=== PATIENT | female | born 1950 | race African-American/Black ===

== ENCOUNTER 2017-04-01 20:22 | Emergency (ER) | payer OTHER ==
[2017-04-01 20:26] VITALS: BP 152/89; PULSE 80; TEMP 98.3; BMI 29.0
[2017-04-01] MEDS ORDERED: CYCLOBENZAPRINE HCL 10 MG TABLET (FP) PO ONE (21:07)
[2017-04-01] MEDS ORDERED: KETOROLAC TROMETHAMINE 30 MG/1 ML VIAL IM ONE (21:07)
[2017-04-01] MEDS ORDERED: KETOROLAC TROMETHAMINE 30 MG/1 ML VIAL ONE (21:12)
[2017-04-01] MEDS ORDERED: CYCLOBENZAPRINE HCL 10 MG TABLET (FP) ONE (21:12)
--- NOTE | 2017-04-01 21:12 | PDOC ---
History of Present Illness - General Chief Complaint: Pain, Acute Stated Complaint: NECK PAIN Time Seen by Provider: 04/01/17 20:38 History Source: Patient - History of Present Illness Timing/Duration: other (yesterday) Associated Symptoms: denies: fever/chills, headaches, nausea/vomiting Past History - Past Medical History Allergies/Adverse Reactions: Allergies Allergy/AdvReac Type Severity Reaction Status Date / Time No Known Allergies Allergy Verified 04/01/17 20:26 Home Medications: Ambulatory Orders Cyclobenzaprine HCl 5 mg PO TID #9 tablet 04/01/17 Ibuprofen [Motrin -] 600 mg PO QID #28 tablet 04/01/17 Other medical history: denies - Suicide/Smoking/Psychosocial Hx Smoking History: Never smoked Have you smoked in the past 12 months: No Hx Alcohol Use: No Drug/Substance Use Hx: No Substance Use Type: None Review of Systems - Review of Systems Constitutional: No: Chills, Fever HEENTM: No: Blurred Vision ABD/GI: No: Nausea, Vomiting Musculoskeletal: No: Neck Pain Neurological: No: Headache, Numbness, Tingling, Weakness, Dizziness *Physical Exam - Vital Signs Last Vital Signs Temp Pulse Resp BP Pulse Ox 98.3 F 80 18 152/89 99 04/01/17 20:24 04/01/17 20:24 04/01/17 20:24 04/01/17 20:24 04/01/17 20:24 - Physical Exam General Appearance: Yes: Appropriately Dressed. No: Apparent Distress HEENT: positive: Normal Voice Neck: positive: Tender (over R trapezium, no midline tenderness, FROMI), Supple Respiratory/Chest: negative: Respiratory Distress Integumentary: positive: Dry, Warm Neurologic: positive: Fully Oriented, Alert, Normal Mood/Affect Medical Decision Making - Medical Decision Making 04/01/17 21:08 66 yo F, denies any pmhx, p/w R neck since yesterday. Unable to describe pain, 6 /10 and worse w/ ROM. No UE weakness, sensory changes, CURIEL, dizziness, visual changes, n/v or focal weakness. Denies any trauma but states she "works out" frequently in her home See exam M/l neck strain No red flags at this time -dc w/ pain control 04/01/17 21:14 04/01/17 21:18 04/01/17 21:22 After given meds, pt requested discharge. Will f/u with her PMD as needed *DC/Admit/Observation/Transfer Diagnosis at time of Disposition: Neck strain Qualifiers: Encounter type: initial encounter Qualified Code(s): S16.1XXA - Strain of muscle, fascia and tendon at neck level, initial encounter - Discharge Dispostion Disposition: HOME - Prescriptions Prescriptions: Cyclobenzaprine HCl 5 mg PO TID #9 tablet Ibuprofen [Motrin -] 600 mg PO QID #28 tablet - Referrals Referrals: Chelsea Capone [Primary Care Provider] - - Patient Instructions Printed Discharge Instructions: DI for Neck Pain Additional Instructions: Take medications as needed If pain persists, follow up with your PMD
== END 2017-04-01 21:21 | disposition home or self-care (01) ==
LOC: JERFT 20:22
PROC: 3E0233Z Introduction of Anti-inflammatory into Muscle, Percutaneous Approach (ICD-10-PCS; principal; 2017-04-01)
DX: S16.1XXA Strain of muscle, fascia and tendon at neck level, initial encounter (principal); X58.XXXA Exposure to other specified factors, initial encounter; Y93.89 Activity, other specified; Y92.89 Other specified places as the place of occurrence of the external cause
CPT/HCPCS: 99281-25

== ENCOUNTER 2018-03-29 22:19 | Emergency (ER) | payer OTHER ==
[2018-03-29 22:26] VITALS: BP 139/88; PULSE 80; TEMP 97.9; BMI 29.0
--- NOTE | 2018-03-29 22:52 | PDOC ---
History of Present Illness - General History Source: Patient Exam Limitations: No Limitations - History of Present Illness Initial Comments: 03/29/18 22:57 Best Contact:[phone] [facility] Pmhx: Denies Pshx: Denies Allergies: NKDA FH:0 Social Hx: Cigarettes/ 0 Alcohol/ 0 Drugs/0 LMP:N/A 67-year-old female who is right hand dominant presents to the emergency department complaining of left elbow pain 4 days after constantly repetitive flexion and extension while at work and at home. Pain is described as 5/10 dull nonradiating intermittent discomfort which increases on movement and alleviated at rest. Patient denies any injuries/fall, extremity numbness or tingling sensation. <Casa Johnson - Last Filed: 03/29/18 22:57> <Herve Marte - Last Filed: 03/30/18 22:17> - General Chief Complaint: Pain Stated Complaint: LT ELBOW PAIN Time Seen by Provider: 03/29/18 22:51 Past History - Past Medical History COPD: No - Suicide/Smoking/Psychosocial Hx Smoking History: Never smoked Have you smoked in the past 12 months: No Hx Alcohol Use: No Drug/Substance Use Hx: No Substance Use Type: None <Casa Johnson - Last Filed: 03/29/18 22:57> <Herve Marte - Last Filed: 03/30/18 22:17> - Past Medical History Allergies/Adverse Reactions: Allergies Allergy/AdvReac Type Severity Reaction Status Date / Time No Known Allergies Allergy Verified 03/29/18 22:23 Home Medications: Ambulatory Orders Cyclobenzaprine HCl [Flexeril -] 10 mg PO TID #9 tablet 04/02/17 Ibuprofen [Motrin -] 400 mg PO Q6H #30 tablet 04/02/17 Acetaminophen [Tylenol] 650 mg PO PRN 03/29/18 Review of Systems - Review of Systems Able to Perform ROS?: Yes Comments:: 03/29/18 22:59 CONSTITUTIONAL: Absent: fever, chills, diaphoresis, generalized weakness, malaise, loss of appetite HEENT: Absent: rhinorrhea, nasal congestion, throat pain, throat swelling, difficulty swallowing, mouth swelling, ear pain, eye pain, visual Changes CARDIOVASCULAR: Absent: chest pain, loss of consciousness, palpitations, irregular heart rate, peripheral edema RESPIRATORY: Absent: cough, shortness of breath, dyspnea with exertion, orthopnea, wheezing, stridor, hemoptysis GASTROINTESTINAL: Absent: abdominal pain, abdominal distension, nausea, vomiting, diarrhea, constipation, melena, hematochezia MUSCULOSKELETAL: +left elbow pain Absent: myalgia, arthralgia, joint swelling SKIN: Absent: rash, itching, pallor Is the patient limited [place] proficient: No <Casa Johnson - Last Filed: 03/29/18 22:57> *Physical Exam - Vital Signs Last Vital Signs Temp Pulse Resp BP Pulse Ox 97.9 F 80 18 139/88 98 03/29/18 22:23 03/29/18 22:23 03/29/18 22:23 03/29/18 22:23 03/29/18 22:23 - Physical Exam Comments: 03/29/18 23:00 GENERAL: Well developed, well nourished. Awake and alert. No acute distress. HEENT: Normocephalic, atraumatic. PERRLA, EOMI. No conjunctival pallor. Sclera are non- icteric. Moist mucous membranes. Oropharynx is clear. NECK: Supple. Full ROM. No JVD. Carotid pulses 2+ and symmetric, without bruits. No thyromegaly. No lymphadenopathy. CARDIOVASCULAR: Regular rate and rhythm. No murmurs, rubs, or gallops. Distal pulses are 2+ and symmetric. PULMONARY: No evidence of respiratory distress. Lungs clear to auscultation bilaterally. No wheezing, rales or rhonchi. MUSCULOSKELETAL Normal range of motion at all joints. No bony deformities or tenderness. No CVA tenderness. EXTREMITIES: +left elbow, neg obv deformities, Pain on palp, neg erythematous/swelling No cyanosis. No clubbing. No edema. No calf tenderness. SKIN: Warm and dry. Normal capillary refill. No rashes. No jaundice. <Casa Johnson - Last Filed: 03/29/18 22:57> - Vital Signs Last Vital Signs Temp Pulse Resp BP Pulse Ox 97.9 F 80 18 139/88 98 03/29/18 22:23 03/29/18 22:23 03/29/18 22:23 03/29/18 22:23 03/29/18 22:23 <Herve Marte - Last Filed: 03/30/18 22:17> ED Treatment Course - RADIOLOGY Radiograph Interpretation: 03/29/18 23:01 Xray left elbow; 2v neg <Casa Johnson - Last Filed: 03/29/18 22:57> Medical Decision Making - Medical Decision Making 03/30/18 22:17 The patient was seen and evaluated in conjunction with ALEXANDRA Johnson under my direct supervision, ancillary studies were reviewed. I agree with the plan as outlined by ALEXANDRA Johnson. <Herve Marte - Last Filed: 03/30/18 22:17> *DC/Admit/Observation/Transfer - Discharge Dispostion Decision to Admit order: No <Casa Johnson - Last Filed: 03/29/18 22:57> <Herve Marte - Last Filed: 03/30/18 22:17> Diagnosis at time of Disposition: Elbow tendonitis - Discharge Dispostion Disposition: HOME Condition at time of disposition: Stable - Referrals Referrals: Albert Mullins MD [Staff Physician] - - Patient Instructions Printed Discharge Instructions: DI for Lateral Epicondylitis (Tennis Elbow) Additional Instructions: Ice; 20 mins on alternating with 20 mins off for 48 hours while awake. Rest Elevate Follow up with your orthopedic surgeon or the one listed on the discharge form. Motrin as needed for pain Return to the ER for severe/persistent/worsening symptoms, extremity numbness/ tingling sensation.
== END 2018-03-29 23:40 | disposition home or self-care (01) ==
LOC: JER 22:19
DX: M77.12 Lateral epicondylitis, left elbow (principal)
CPT/HCPCS: 73070-TC-LT-FY; 99282-25

== ENCOUNTER 2020-07-23 08:57 | Inpatient (IN) | payer BC, OTHER ==
[2020-07-23 10:43] LABS: BASO % 1.4 % (0-2.0); EOS % 2.1 % (0-4.5); HEMATOCRIT 42.1 % (32.4-45.2); HEMOGLOBIN 13.6 GM/dL (10.7-15.3); LYMPH % 29.8 % (8-40); MCH 28.4 pg (25.7-33.7); MCHC 32.4 g/dl (32.0-36.0); MEAN CELL VOLUME 87.7 fl (80-96); MEAN PLT VOLUME 8.6 fl (7.5-11.1); MONO % 13.1 % (3.8-10.2); NEUT % 53.6 % (42.8-82.8); PLATELET COUNT 151 K/MM3 (134-434); RDW 14.4 % (11.6-15.6); WHITE BLOOD COUNT 4.7 K/mm3 (4.0-10.0)
[2020-07-23] MEDS: SODIUM CHLORIDE 500 ML IV SCH (11:02)
[2020-07-23 11:12] LABS: INR 1.05 (0.83-1.09); PROTHROMBIN TIME (PATIENT) 12.7 SEC (9.7-13.0)
[2020-07-23 11:14] LABS: POTASSIUM 4.5 mmol/L (3.5-5.1)
[2020-07-23 11:15] LABS: ACTIVATED PTT 31.4 SECONDS (25.2-36.5)
[2020-07-23 11:16] LABS: CALCIUM 9.3 mg/dL (8.5-10.1)
[2020-07-23 11:17] LABS: ALBUMIN 3.7 g/dl (3.4-5.0); BLOOD UREA NITROGEN 13.8 mg/dL (7-18); MAGNESIUM 2.3 mg/dL (1.8-2.4)
[2020-07-23 11:20] LABS: CREATININE 0.8 mg/dL (0.55-1.3)
[2020-07-23 11:21] LABS: BILIRUBIN,TOTAL 0.4 mg/dL (0.2-1); TOT PROT 7.9 g/dl (6.4-8.2)
[2020-07-23 11:24] LABS: N-TERMINAL BNP 38.8 pg/ml (5-125)
[2020-07-23] MEDS ORDERED: ASPIRIN 81 MG CHEWABLE TABLETS PO ONE (11:29)
[2020-07-23] MEDS ORDERED: ASPIRIN 81 MG CHEWABLE TABLETS ONE (12:22)
[2020-07-23] MEDS ORDERED: ENOXAPARIN NA (PORCINE) 40 MG/0.4 ML DISP.SYRIN SQ ONE (13:32)
[2020-07-23] MEDS ORDERED: ENOXAPARIN NA (PORCINE) 100 MG/1 ML DISP.SYRIN SQ ONE (13:40)
[2020-07-23] MEDS ORDERED: HEPARIN NA (PORCINE) 5,000 UNITS/ML 1ML VIAL IVPUSH PRN ×2 (16:08)
[2020-07-23] MEDS ORDERED: HEPARIN INFUSION - 25,000 UNITS/500 ML INFUS.BAG IVPB ONE (16:23)
[2020-07-23] MEDS: HEPARIN INFUSION - 25,000 UNITS/500 ML INFUS.BAG IVPB SCH (16:37)
[2020-07-24 07:21] LABS: BASO % 0.5 % (0-2.0); EOS % 3.6 % (0-4.5); HEMATOCRIT 40.4 % (32.4-45.2); HEMOGLOBIN 13.1 GM/dL (10.7-15.3); LYMPH % 36.9 % (8-40); MCH 28.5 pg (25.7-33.7); MCHC 32.4 g/dl (32.0-36.0); MEAN CELL VOLUME 87.8 fl (80-96); MEAN PLT VOLUME 8.6 fl (7.5-11.1); MONO % 11.6 % (3.8-10.2); NEUT % 47.4 % (42.8-82.8); PLATELET COUNT 157 K/MM3 (134-434); RDW 14.2 % (11.6-15.6); WHITE BLOOD COUNT 5.5 K/mm3 (4.0-10.0)
[2020-07-24 07:41] LABS: CALCIUM 8.6 mg/dL (8.5-10.1)
[2020-07-24 07:42] LABS: ALBUMIN 3.2 g/dl (3.4-5.0); BLOOD UREA NITROGEN 12.8 mg/dL (7-18); MAGNESIUM 2.4 mg/dL (1.8-2.4)
[2020-07-24 07:45] LABS: CREATININE 0.8 mg/dL (0.55-1.3)
[2020-07-24 07:47] LABS: BILIRUBIN,TOTAL 0.4 mg/dL (0.2-1); TOT PROT 7.1 g/dl (6.4-8.2)
[2020-07-24] MEDS: ACETAMINOPHEN 325 MG TABLET (FP) PO PRN (12:02)
[2020-07-24] MEDS: SODIUM CHLORIDE 500 ML IV SCH (12:08)
[2020-07-24] MEDS: HEPARIN INFUSION - 25,000 UNITS/500 ML INFUS.BAG IVPB SCH (19:00)
[2020-07-25] MEDS: ACETAMINOPHEN 325 MG TABLET (FP) PO PRN (04:36)
[2020-07-25 06:50] LABS: HEMATOCRIT 37.1 % (32.4-45.2); HEMOGLOBIN 12.2 GM/dL (10.7-15.3); MCH 28.6 pg (25.7-33.7); MCHC 32.9 g/dl (32.0-36.0); MEAN PLT VOLUME 8.5 fl (7.5-11.1); PLATELET COUNT 160 K/MM3 (134-434); RBC 4.27 M/mm3 (3.60-5.2); RDW 14.2 % (11.6-15.6); WHITE BLOOD COUNT 5.4 K/mm3 (4.0-10.0)
[2020-07-25 07:48] LABS: BLOOD UREA NITROGEN 13.1 mg/dL (7-18); CALCIUM 8.3 mg/dL (8.5-10.1); CREATININE 0.7 mg/dL (0.55-1.3); POTASSIUM 3.9 mmol/L (3.5-5.1)
[2020-07-25] MEDS ORDERED: ALTEPLASE 50MG 25 MG in SODIUM CHLORIDE 225 ML IVPB ONE ×2 (11:45→12:00)
[2020-07-25] MEDS: SODIUM CHLORIDE 500 ML IV SCH (14:31)
[2020-07-25] MEDS: HEPARIN INFUSION - 25,000 UNITS/500 ML INFUS.BAG IVPB SCH (15:00)
[2020-07-25] MEDS ORDERED: APIXABAN 5 MG TABLET PO SCH ×2 (16:00→22:00)
[2020-07-25] MEDS ORDERED: HEPARIN NA (PORCINE) 5,000 UNITS/ML 1ML VIAL IVPUSH PRN ×4 (16:21→18:05)
[2020-07-25] MEDS ORDERED: HEPARIN - 25,000 UNIT in SODIUM CHLORIDE 495 ML IV SCH (16:30)
[2020-07-25] MEDS ORDERED: HEPARIN NA (PORCINE) 5,000 UNITS/ML 1ML VIAL IVPUSH ONE (18:05)
[2020-07-25] MEDS: MULTIVITAMINS (DAILY MVI) TABLET (FP) PO SCH (18:35)
[2020-07-25] MEDS ORDERED: BENZOCAINE/MENTH/CETYLPYRD CL 1 EACH LOZENGE MM PRN (22:46)
[2020-07-26 07:26] LABS: BASO % 0.6 % (0-2.0); EOS % 2.8 % (0-4.5); HEMATOCRIT 37.7 % (32.4-45.2); HEMOGLOBIN 12.4 GM/dL (10.7-15.3); LYMPH % 31.3 % (8-40); MCH 28.4 pg (25.7-33.7); MCHC 32.8 g/dl (32.0-36.0); MEAN CELL VOLUME 86.5 fl (80-96); MEAN PLT VOLUME 8.5 fl (7.5-11.1); MONO % 10.3 % (3.8-10.2); PLATELET COUNT 182 K/MM3 (134-434); RBC 4.36 M/mm3 (3.60-5.2); RDW 13.9 % (11.6-15.6); WHITE BLOOD COUNT 5.7 K/mm3 (4.0-10.0)
[2020-07-26 08:50] LABS: ALBUMIN 3.2 g/dl (3.4-5.0); BILIRUBIN,TOTAL 0.5 mg/dL (0.2-1); BLOOD UREA NITROGEN 12.8 mg/dL (7-18); CALCIUM 8.6 mg/dL (8.5-10.1); CREATININE 0.7 mg/dL (0.55-1.3); MAGNESIUM 2.2 mg/dL (1.8-2.4); PHOSPHOROUS 2.6 mg/dL (2.5-4.9); POTASSIUM 3.9 mmol/L (3.5-5.1); TOT PROT 7.1 g/dl (6.4-8.2)
[2020-07-26] MEDS: MULTIVITAMINS (DAILY MVI) TABLET (FP) PO SCH (09:57)
[2020-07-26] MEDS ORDERED: ALTEPLASE 50MG 25 MG in SODIUM CHLORIDE 225 ML IVPB ONE (11:45)
[2020-07-26] MEDS: HEPARIN INFUSION - 25,000 UNITS/500 ML INFUS.BAG IVPB SCH (19:15)
[2020-07-26] MEDS: SODIUM CHLORIDE 500 ML IV SCH (19:15)
[2020-07-27] MEDS: ACETAMINOPHEN 325 MG TABLET (FP) PO PRN (02:26)
[2020-07-27 07:11] LABS: BASO % 0.7 % (0-2.0); EOS % 3.1 % (0-4.5); HEMOGLOBIN 12.1 GM/dL (10.7-15.3); MCH 28.5 pg (25.7-33.7); MCHC 32.7 g/dl (32.0-36.0); MEAN CELL VOLUME 87.3 fl (80-96); MEAN PLT VOLUME 8.5 fl (7.5-11.1); MONO % 10.8 % (3.8-10.2); NEUT % 59.4 % (42.8-82.8); PLATELET COUNT 152 K/MM3 (134-434); RBC 4.24 M/mm3 (3.60-5.2); RDW 14.2 % (11.6-15.6); WHITE BLOOD COUNT 5.5 K/mm3 (4.0-10.0)
[2020-07-27 07:30] LABS: POTASSIUM 4.2 mmol/L (3.5-5.1)
[2020-07-27 07:48] LABS: ALBUMIN 2.9 g/dl (3.4-5.0); BLOOD UREA NITROGEN 16.4 mg/dL (7-18); CALCIUM 8.7 mg/dL (8.5-10.1)
[2020-07-27 07:49] LABS: MAGNESIUM 2.2 mg/dL (1.8-2.4)
[2020-07-27 07:51] LABS: BILIRUBIN,TOTAL 0.7 mg/dL (0.2-1); CREATININE 0.7 mg/dL (0.55-1.3); TOT PROT 6.7 g/dl (6.4-8.2)
[2020-07-27] MEDS: HEPARIN INFUSION - 25,000 UNITS/500 ML INFUS.BAG IVPB SCH (07:55)
[2020-07-27] MEDS: MULTIVITAMINS (DAILY MVI) TABLET (FP) PO SCH (09:08)
[2020-07-27] MEDS: SODIUM CHLORIDE 500 ML IV SCH (10:33)
[2020-07-27] MEDS ORDERED: PT OWN MED DRAWER 7, Y5N ONE ×2 (12:39→12:45)
[2020-07-27] MEDS: APIXABAN 5 MG TABLET PO SCH (22:18)
[2020-07-28] MEDS: ACETAMINOPHEN 325 MG TABLET (FP) PO PRN (05:06)
[2020-07-28 06:50] LABS: BASO % 0.6 % (0-2.0); EOS % 4.2 % (0-4.5); HEMATOCRIT 35.8 % (32.4-45.2); HEMOGLOBIN 11.6 GM/dL (10.7-15.3); MCH 28.3 pg (25.7-33.7); MCHC 32.5 g/dl (32.0-36.0); MEAN CELL VOLUME 87.1 fl (80-96); MEAN PLT VOLUME 8.5 fl (7.5-11.1); MONO % 12.8 % (3.8-10.2); NEUT % 53.4 % (42.8-82.8); PLATELET COUNT 143 K/MM3 (134-434); RBC 4.11 M/mm3 (3.60-5.2); RDW 14.1 % (11.6-15.6); WHITE BLOOD COUNT 5.7 K/mm3 (4.0-10.0)
[2020-07-28 07:04] LABS: POTASSIUM 4.1 mmol/L (3.5-5.1)
[2020-07-28 07:08] LABS: ALBUMIN 2.8 g/dl (3.4-5.0); CALCIUM 8.3 mg/dL (8.5-10.1)
[2020-07-28 07:11] LABS: CREATININE 0.7 mg/dL (0.55-1.3)
[2020-07-28 07:12] LABS: PHOSPHOROUS 2.9 mg/dL (2.5-4.9)
[2020-07-28 07:13] LABS: BILIRUBIN,TOTAL 0.3 mg/dL (0.2-1); TOT PROT 6.4 g/dl (6.4-8.2)
[2020-07-28] MEDS: APIXABAN 5 MG TABLET PO SCH ×2 (09:02→21:35)
[2020-07-28] MEDS: MULTIVITAMINS (DAILY MVI) TABLET (FP) PO SCH (09:08)
[2020-07-28] MEDS ORDERED: ALBUTEROL SO4 HFA INHALER IH PRN (19:11)
[2020-07-29] MEDS ORDERED: BENZOCAINE/MENTH/CETYLPYRD CL 1 EACH LOZENGE MM PRN (06:55)
[2020-07-29 08:22] LABS: HEMATOCRIT 33.6 % (32.4-45.2); HEMOGLOBIN 11.1 GM/dL (10.7-15.3); MCH 28.6 pg (25.7-33.7); MEAN CELL VOLUME 86.7 fl (80-96); MEAN PLT VOLUME 8.6 fl (7.5-11.1); PLATELET COUNT 180 K/MM3 (134-434); RBC 3.88 M/mm3 (3.60-5.2); RDW 13.8 % (11.6-15.6); WHITE BLOOD COUNT 4.4 K/mm3 (4.0-10.0)
[2020-07-29 08:38] LABS: CALCIUM 8.5 mg/dL (8.5-10.1)
[2020-07-29 08:39] LABS: BLOOD UREA NITROGEN 18.5 mg/dL (7-18); MAGNESIUM 2.3 mg/dL (1.8-2.4)
[2020-07-29 08:43] LABS: CREATININE 0.8 mg/dL (0.55-1.3); PHOSPHOROUS 3.2 mg/dL (2.5-4.9)
[2020-07-29] MEDS ORDERED: ACETAMINOPHEN 325 MG TABLET (FP) ONE (09:26)
[2020-07-29] MEDS: APIXABAN 5 MG TABLET PO SCH ×2 (09:36→21:20)
[2020-07-29] MEDS: ACETAMINOPHEN 325 MG TABLET (FP) PO PRN (09:36)
[2020-07-29] MEDS: MULTIVITAMINS (DAILY MVI) TABLET (FP) PO SCH (09:36)
[2020-07-29 14:48] VITALS: BMI 36.1
[2020-07-30 08:50] LABS: HEMATOCRIT 33.4 % (32.4-45.2); HEMOGLOBIN 10.8 GM/dL (10.7-15.3); MCH 28.6 pg (25.7-33.7); MCHC 32.4 g/dl (32.0-36.0); MEAN CELL VOLUME 88.3 fl (80-96); MEAN PLT VOLUME 8.3 fl (7.5-11.1); PLATELET COUNT 191 K/MM3 (134-434); RBC 3.78 M/mm3 (3.60-5.2); RDW 14.3 % (11.6-15.6); WHITE BLOOD COUNT 4.4 K/mm3 (4.0-10.0)
[2020-07-30 09:01] LABS: POTASSIUM 4.6 mmol/L (3.5-5.1)
[2020-07-30 09:12] LABS: CALCIUM 8.6 mg/dL (8.5-10.1)
[2020-07-30 09:14] LABS: BLOOD UREA NITROGEN 22.3 mg/dL (7-18); MAGNESIUM 2.2 mg/dL (1.8-2.4)
[2020-07-30 09:16] LABS: CREATININE 0.7 mg/dL (0.55-1.3)
[2020-07-30] MEDS: MULTIVITAMINS (DAILY MVI) TABLET (FP) PO SCH (09:29)
[2020-07-30] MEDS: APIXABAN 5 MG TABLET PO SCH ×2 (09:29→21:14)
[2020-07-30 14:37] LABS: INR 1.56 (0.83-1.09); PROTHROMBIN TIME (PATIENT) 18.9 SEC (9.7-13.0)
[2020-07-30 14:39] LABS: ACTIVATED PTT 33.4 SECONDS (25.2-36.5)
[2020-07-31] MEDS: ACETAMINOPHEN 325 MG TABLET (FP) PO PRN (05:53)
[2020-07-31] MEDS: MULTIVITAMINS (DAILY MVI) TABLET (FP) PO SCH (11:05)
[2020-07-31] MEDS: APIXABAN 5 MG TABLET PO SCH (11:05)
[2020-07-31 12:40] VITALS: BP 113/55; PULSE 76; TEMP 97.7
[2020-08-02] MEDS ORDERED: APIXABAN 5 MG TABLET PO SCH (10:00)
== END 2020-07-31 15:07 | disposition home or self-care (01) | DRG 164 ==
LOC: JER 08:57 → JERBED 15:07 → JICU 22:09 → J4W 07-28 22:34
PROVIDERS: ADMIT Internal Medicine; ATTEND Internal Medicine
PROC: 02F Heart and Great Vessels, Fragmentation (ICD-10-PCS; principal; 2020-07-26)
PROC: 02CP3ZZ Extirpation of Matter from Pulmonary Trunk, Percutaneous Approach (ICD-10-PCS; 2020-07-26)
PROC: B31TZZZ Fluoroscopy of Left Pulmonary Artery (ICD-10-PCS; 2020-07-26)
PROC: B31SZZZ Fluoroscopy of Right Pulmonary Artery (ICD-10-PCS; 2020-07-26)
PROC: 3E06317 Introduction of Other Thrombolytic into Central Artery, Percutaneous Approach (ICD-10-PCS; 2020-07-26)
DX: I26.09 Other pulmonary embolism with acute cor pulmonale (principal); I24.8 Other forms of acute ischemic heart disease; J45.909 Unspecified asthma, uncomplicated; R06.02 Shortness of breath; R77.8 Other specified abnormalities of plasma proteins; E66.9 Obesity, unspecified; Z68.34 Body mass index [BMI] 34.0-34.9, adult; I45.10 Unspecified right bundle-branch block
CPT/HCPCS: 36415; 37187; 37212; 71046-TC-FY; 71275-TC; 75743-TC-FY; 75746-TC-FY; 80048; 80053; 82550; 82553; 82728; 83615; 83735; 83880; 84100; 84484; 85025; 85027; 85379; 85610; 85730; 86140; 86769; 93005; 93010; 93306-TC; 93308; 93970-TC; 97116-GP; 97161-GP; 99285-25; C9803; J1644; J2997; Q9967; U0003

== ENCOUNTER 2020-08-09 12:47 | Emergency (ER) | payer BC, OTHER ==
[2020-08-09 13:06] VITALS: BP 133/77; BMI 36.3
[2020-08-09] MEDS ORDERED: ACETAMINOPHEN 325 MG TABLET (FP) PO ONE (13:46)
[2020-08-09] MEDS ORDERED: LIDOCAINE 5% TOPICAL PATCH TP ONE (13:46)
[2020-08-09] MEDS ORDERED: LIDOCAINE 5% TOPICAL PATCH ONE (14:01)
[2020-08-09] MEDS ORDERED: ACETAMINOPHEN 325 MG TABLET (FP) ONE (14:01)
[2020-08-09] MEDS ORDERED: SODIUM CHLORIDE 0.9% 500 ML INFUS.BAG IV ONE (17:45)
[2020-08-09 18:45] LABS: BASO % 1.4 % (0-2.0); EOS % 2.6 % (0-4.5); HEMATOCRIT 35.8 % (32.4-45.2); HEMOGLOBIN 11.5 GM/dL (10.7-15.3); LYMPH % 39.2 % (8-40); MCH 28.4 pg (25.7-33.7); MEAN CELL VOLUME 88.5 fl (80-96); MEAN PLT VOLUME 8.3 fl (7.5-11.1); MONO % 15.4 % (3.8-10.2); NEUT % 41.4 % (42.8-82.8); PLATELET COUNT 291 K/MM3 (134-434); RBC 4.04 M/mm3 (3.60-5.2); RDW 14.6 % (11.6-15.6); WHITE BLOOD COUNT 4.5 K/mm3 (4.0-10.0)
[2020-08-09 18:54] LABS: INR 1.03 (0.83-1.09); PROTHROMBIN TIME (PATIENT) 12.6 SEC (9.7-13.0)
[2020-08-09 19:10] LABS: CHLORIDE 106 mmol/L (98-107); POTASSIUM 4.3 mmol/L (3.5-5.1); SODIUM 140 mmol/L (136-145)
[2020-08-09 19:13] LABS: ALBUMIN 3.4 g/dl (3.4-5.0); ANION GAP 5 MMOL/L (8-16); BLOOD UREA NITROGEN 17.4 mg/dL (7-18); CALCIUM 9.1 mg/dL (8.5-10.1); CO2 29 mmol/L (21-32); GLUCOSE,RANDOM 84 mg/dL (74-106)
[2020-08-09 19:16] LABS: CREATININE 0.7 mg/dL (0.55-1.3); SGOT/AST 24 U/L (15-37); SGPT/ALT 40 U/L (13-61)
[2020-08-09 19:18] LABS: BILIRUBIN,TOTAL 0.3 mg/dL (0.2-1); TOT PROT 7.3 g/dl (6.4-8.2)
[2020-08-09 19:19] LABS: ALK PHOS 97 U/L (45-117)
[2020-08-09 19:52] VITALS: PULSE 67; TEMP 98.2
== END 2020-08-09 20:07 | disposition home or self-care (01) ==
LOC: JER 12:47
DX: M25.512 Pain in left shoulder (principal); R11.0 Nausea
CPT/HCPCS: 36415; 71046-TC-FY; 73030-TC-LT-FY; 80053; 82550; 82553; 84484; 85025; 85610; 93005; 93010; 93971; 99285-25

== ENCOUNTER 2020-08-31 19:02 | Emergency (ER) | payer BC ==
[2020-08-31 19:29] VITALS: TEMP 98.3; BMI 36.4
[2020-08-31 21:15] LABS: BASO % 0.8 % (0-2.0); HEMATOCRIT 36.6 % (32.4-45.2); LYMPH % 39.4 % (8-40); MCH 28.7 pg (25.7-33.7); MCHC 32.6 g/dl (32.0-36.0); MEAN CELL VOLUME 87.9 fl (80-96); MEAN PLT VOLUME 8.9 fl (7.5-11.1); MONO % 13.2 % (3.8-10.2); NEUT % 44.6 % (42.8-82.8); PLATELET COUNT 215 K/MM3 (134-434); RBC 4.17 M/mm3 (3.60-5.2); RDW 14.9 % (11.6-15.6); WHITE BLOOD COUNT 4.3 K/mm3 (4.0-10.0)
[2020-08-31 21:30] LABS: CHLORIDE 111 mmol/L (98-107); POTASSIUM 4.4 mmol/L (3.5-5.1); SODIUM 144 mmol/L (136-145)
[2020-08-31 21:32] LABS: CALCIUM 8.8 mg/dL (8.5-10.1)
[2020-08-31 21:33] LABS: ALBUMIN 3.3 g/dl (3.4-5.0); ANION GAP 6 MMOL/L (8-16); BLOOD UREA NITROGEN 19.3 mg/dL (7-18); CO2 27 mmol/L (21-32); GLUCOSE,RANDOM 78 mg/dL (74-106); LIPASE 217 U/L (73-393)
[2020-08-31 21:36] LABS: CREATININE 0.7 mg/dL (0.55-1.3); SGOT/AST 24 U/L (15-37); SGPT/ALT 23 U/L (13-61)
[2020-08-31 21:38] LABS: BILIRUBIN,TOTAL 0.3 mg/dL (0.2-1); TOT PROT 7.2 g/dl (6.4-8.2)
[2020-08-31 21:39] LABS: ALK PHOS 92 U/L (45-117)
[2020-08-31 23:12] LABS: INR 1.1 (0.83-1.09); PROTHROMBIN TIME (PATIENT) 13.3 SEC (9.7-13.0)
[2020-08-31 23:14] LABS: ACTIVATED PTT 31.7 SECONDS (25.2-36.5)
[2020-09-01 01:41] VITALS: BP 129/93; PULSE 77
[2020-09-01 03:10] LABS: EPI CELLS >36 /uL (0-25.1); HYALINE CASTS 4 /uL (0-3.1); PH,URINE 5.5 (5.0-8.0); URINE APPEARANCE CLOUDY; URINE BACTERIA 183 /uL (0-1359); URINE BILIRUBIN NEGATIVE (NEGATIVE); URINE COLOR YELLOW; URINE GLUCOSE (UA) NEGATIVE (NEGATIVE); URINE KETONE TRACE (NEGATIVE); URINE LEUK ESTERASE 1+ (NEGATIVE); URINE NITRITE NEGATIVE (NEGATIVE); URINE PROTEIN NEGATIVE (NEGATIVE); URINE RBC 12 /uL (0-23.9); URINE UROBILINOGEN 0.2 mg/dL (0.2-1.0); URINE WBC 31 /uL (0-25.8)
== END 2020-09-01 04:06 | disposition home or self-care (01) ==
LOC: JER 19:02
DX: R10.84 Generalized abdominal pain (principal)
CPT/HCPCS: 36415; 71275-TC; 74174-TC; 80053; 81003; 83605; 83690; 84484; 85025; 85610; 85730; 86850; 86900; 86901; 87086; 93005; 93010; 99285-25

== ENCOUNTER 2020-09-13 11:30 | Inpatient (IN) | payer BC ==
[2020-09-13 11:38] VITALS: BMI 36.3
[2020-09-13] MEDS ORDERED: CYCLOBENZAPRINE HCL 10 MG TABLET (FP) PO ONE (12:14)
[2020-09-13] MEDS ORDERED: CYCLOBENZAPRINE HCL 10 MG TABLET (FP) ONE (12:31)
[2020-09-13 12:48] LABS: BASO % 0.7 % (0-2.0); EOS % 2.9 % (0-4.5); HEMATOCRIT 37.2 % (32.4-45.2); HEMOGLOBIN 12.2 GM/dL (10.7-15.3); MCH 28.8 pg (25.7-33.7); MCHC 32.8 g/dl (32.0-36.0); MEAN CELL VOLUME 87.9 fl (80-96); MEAN PLT VOLUME 8.4 fl (7.5-11.1); NEUT % 45.4 % (42.8-82.8); PLATELET COUNT 219 K/MM3 (134-434); RBC 4.23 M/mm3 (3.60-5.2); RDW 14.9 % (11.6-15.6); WHITE BLOOD COUNT 3.7 K/mm3 (4.0-10.0)
[2020-09-13 12:52] LABS: EPI CELLS >36 /uL (0-25.1); HYALINE CASTS 4 /uL (0-3.1); INR 1.08 (0.83-1.09); PH,URINE 8.5 (5.0-8.0); PROTHROMBIN TIME (PATIENT) 13.3 SEC (9.7-13.0); URINE APPEARANCE CLOUDY; URINE BACTERIA 149 /uL (0-1359); URINE BILIRUBIN NEGATIVE (NEGATIVE); URINE COLOR YELLOW; URINE GLUCOSE (UA) NEGATIVE (NEGATIVE); URINE KETONE TRACE (NEGATIVE); URINE LEUK ESTERASE 1+ (NEGATIVE); URINE NITRITE NEGATIVE (NEGATIVE); URINE PROTEIN NEGATIVE (NEGATIVE); URINE RBC 34 /uL (0-23.9); URINE UROBILINOGEN 0.2 mg/dL (0.2-1.0); URINE WBC 19 /uL (0-25.8)
[2020-09-13 12:55] LABS: ACTIVATED PTT 33.7 SECONDS (25.2-36.5)
[2020-09-13 12:56] LABS: CHLORIDE 107 mmol/L (98-107); POTASSIUM 4.3 mmol/L (3.5-5.1); SODIUM 140 mmol/L (136-145)
[2020-09-13 13:02] LABS: ALBUMIN 3.3 g/dl (3.4-5.0); ANION GAP 6 MMOL/L (8-16); CALCIUM 9.7 mg/dL (8.5-10.1); CO2 27 mmol/L (21-32)
[2020-09-13 13:03] LABS: BLOOD UREA NITROGEN 12.2 mg/dL (7-18); GLUCOSE,RANDOM 110 mg/dL (74-106)
[2020-09-13 13:04] LABS: SGPT/ALT 23 U/L (13-61)
[2020-09-13 13:05] LABS: SGOT/AST 20 U/L (15-37)
[2020-09-13 13:06] LABS: BILIRUBIN,TOTAL 0.2 mg/dL (0.2-1); CREATININE 0.9 mg/dL (0.55-1.3); TOT PROT 7.1 g/dl (6.4-8.2)
[2020-09-13 13:07] LABS: ALK PHOS 109 U/L (45-117)
[2020-09-13] MEDS ORDERED: ASPIRIN 81 MG CHEWABLE TABLETS PO ONE (13:56)
[2020-09-13] MEDS ORDERED: ALBUTEROL SO4 HFA INHALER IH PRN (14:18)
[2020-09-13] MEDS ORDERED: CYCLOBENZAPRINE HCL 10 MG TABLET (FP) PO PRN (14:19)
[2020-09-13] MEDS ORDERED: ACETAMINOPHEN 325 MG TABLET (FP) PO PRN (14:19)
[2020-09-13] MEDS ORDERED: ASPIRIN 81 MG CHEWABLE TABLETS ONE (14:49)
[2020-09-13] MEDS ORDERED: APIXABAN 5 MG TABLET ONE (22:22)
[2020-09-13] MEDS: APIXABAN 5 MG TABLET PO SCH (22:25)
[2020-09-14 01:39] VITALS: TEMP 98.3
[2020-09-14 07:00] LABS: BASO % 1.1 % (0-2.0); EOS % 4.5 % (0-4.5); HEMATOCRIT 35.6 % (32.4-45.2); HEMOGLOBIN 11.6 GM/dL (10.7-15.3); LYMPH % 45.9 % (8-40); MCH 28.7 pg (25.7-33.7); MCHC 32.4 g/dl (32.0-36.0); MEAN CELL VOLUME 88.4 fl (80-96); MEAN PLT VOLUME 8.7 fl (7.5-11.1); NEUT % 35.5 % (42.8-82.8); PLATELET COUNT 198 K/MM3 (134-434); RBC 4.03 M/mm3 (3.60-5.2); RDW 14.8 % (11.6-15.6); WHITE BLOOD COUNT 3.3 K/mm3 (4.0-10.0)
[2020-09-14 07:39] LABS: CALCIUM 8.7 mg/dL (8.5-10.1)
[2020-09-14 07:49] LABS: BLOOD UREA NITROGEN 12.9 mg/dL (7-18)
[2020-09-14 07:52] LABS: CREATININE 0.7 mg/dL (0.55-1.3); PHOSPHOROUS 3.7 mg/dL (2.5-4.9)
[2020-09-14 07:53] LABS: BILIRUBIN,TOTAL 0.4 mg/dL (0.2-1); TOT PROT 6.4 g/dl (6.4-8.2)
[2020-09-14 07:54] LABS: CHOLESTEROL 218 mg/dL (50-200); TRIGLYCERIDES 47 mg/dL (0-150)
[2020-09-14 07:55] LABS: LDL CHOLESTEROL (ONLY SJRH) 103 mg/dL (5-100)
[2020-09-14 07:57] LABS: HDL CHOLESTEROL 96 mg/dL (40-60)
[2020-09-14] MEDS ORDERED: REGADENOSON 0.4 MG/5 ML PRE-FILLED SYRINGE IVPUSH ONE ×2 (09:56→10:15)
[2020-09-14] MEDS ORDERED: PANTOPRAZOLE 40 MG TABLET PO SCH (10:00)
[2020-09-14] MEDS ORDERED: PANTOPRAZOLE 40 MG TABLET ONE (14:17)
[2020-09-14] MEDS ORDERED: APIXABAN 2.5 MG TABLET ONE (14:21)
[2020-09-14] MEDS: APIXABAN 5 MG TABLET PO SCH (14:25)
[2020-09-14 15:56] VITALS: BP 143/79; PULSE 89
== END 2020-09-14 15:55 | disposition home or self-care (01) | DRG 313 ==
LOC: JER 11:30 → JERBED 13:31 → OBSVTOIN 14:11
PROVIDERS: ADMIT Internal Medicine; ATTEND Internal Medicine
DX: R07.89 Other chest pain (principal); J45.909 Unspecified asthma, uncomplicated; Z86.711 Personal history of pulmonary embolism; M54.5 Low back pain; Z79.01 Long term (current) use of anticoagulants; Z68.36 Body mass index [BMI] 36.0-36.9, adult; E66.01 Morbid (severe) obesity due to excess calories; E78.5 Hyperlipidemia, unspecified; Z20.822 Contact with and (suspected) exposure to COVID-19
CPT/HCPCS: 36415; 71045-TC-FY; 78452-TC; 80053; 80061; 81003; 82550; 82553; 83036; 83721; 83735; 84100; 84443; 84484; 85025; 85610; 85730; 87086; 93005; 93010; 93017; 93970-TC; 99285-25; A9502; C9803; G0378; J2785; U0003

== ENCOUNTER 2020-10-08 10:20 | Emergency (ER) | payer BC ==
[2020-10-08 10:36] VITALS: BP 144/73; PULSE 81; TEMP 98.1; BMI 35.5
== END 2020-10-08 12:21 | disposition home or self-care (01) ==
LOC: JERFT 10:20 → JER 10:20 → JERFT 12:21
DX: M25.572 Pain in left ankle and joints of left foot (principal)
CPT/HCPCS: 73610-TC-LT-FY; 73630-TC-LT; 99283-25

== ENCOUNTER 2020-11-04 12:34 | Emergency (ER) | payer BC ==
[2020-11-04 12:45] VITALS: BP 127/64; PULSE 78; TEMP 98.1; BMI 35.5
== END 2020-11-04 17:14 | disposition home or self-care (01) ==
LOC: JER 12:34
DX: R94.31 Abnormal electrocardiogram [ECG] [EKG] (principal)
CPT/HCPCS: 82962; 93005; 93010; 99284-25

== ENCOUNTER 2021-05-29 11:36 | Observation (INO) | payer OTHER ==
[2021-05-29 12:11] VITALS: BMI 37.1
[2021-05-29 13:40] LABS: EOS % 1.9 % (0-4.5); HEMATOCRIT 38.7 % (32.4-45.2); HEMOGLOBIN 12.7 GM/dL (10.7-15.3); LYMPH % 34.4 % (8-40); MCH 28.3 pg (25.7-33.7); MCHC 32.7 g/dl (32.0-36.0); MEAN CELL VOLUME 86.4 fl (80-96); MEAN PLT VOLUME 8.3 fl (7.5-11.1); MONO % 12.6 % (3.8-10.2); NEUT % 50.1 % (42.8-82.8); PLATELET COUNT 219 10^3/uL (134-434); RBC 4.48 M/mm3 (3.60-5.2); RDW 14.4 % (11.6-15.6); WHITE BLOOD COUNT 4.2 K/mm3 (4.0-10.0)
[2021-05-29 13:51] LABS: INR 1.26 (0.83-1.09); PROTHROMBIN TIME (PATIENT) 14.1 SEC (9.7-13.0)
[2021-05-29 13:54] LABS: ACTIVATED PTT 29.7 SECONDS (25.2-36.5)
[2021-05-29 14:06] LABS: CHLORIDE 111 mmol/L (98-107); SODIUM 143 mmol/L (136-145)
[2021-05-29 14:07] LABS: BLOOD UREA NITROGEN 16.3 mg/dL (7-18); CALCIUM 9.3 mg/dL (8.5-10.1)
[2021-05-29 14:08] LABS: ALBUMIN 3.3 g/dl (3.4-5.0); ANION GAP 4 MMOL/L (8-16); CO2 28 mmol/L (21-32); GLUCOSE,RANDOM 87 mg/dL (74-106); MAGNESIUM 2.6 mg/dL (1.8-2.4)
[2021-05-29 14:11] LABS: CREATININE 0.8 mg/dL (0.55-1.3); SGOT/AST 21 U/L (15-37); SGPT/ALT 25 U/L (13-61)
[2021-05-29 14:13] LABS: TOT PROT 7.3 g/dl (6.4-8.2)
[2021-05-29 14:14] LABS: ALK PHOS 97 U/L (45-117)
[2021-05-29 14:16] LABS: N-TERMINAL BNP 49.1 pg/ml (5-125)
[2021-05-29] MEDS ORDERED: SODIUM CHLORIDE 0.9% 500 ML INFUS.BAG IV ONE (14:27)
[2021-05-29 14:44] LABS: BILIRUBIN,TOTAL 0.2 mg/dL (0.2-1)
[2021-05-29] MEDS ORDERED: ALBUTEROL SO4 HFA INHALER IH PRN (21:51)
[2021-05-29] MEDS ORDERED: APIXABAN 2.5 MG TABLET PO SCH (22:00)
[2021-05-29] MEDS ORDERED: ASPIRIN 325 MG ENTERIC COATED TABLET (FP) PO ONE (23:16)
[2021-05-29] MEDS ORDERED: CLOPIDOGREL BISULFATE 300 MG TABLET PO ONE (23:17)
[2021-05-29] MEDS ORDERED: ASPIRIN 325 MG ENTERIC COATED TABLET (FP) ONE (23:44)
[2021-05-29] MEDS ORDERED: CLOPIDOGREL BISULFATE 300 MG TABLET ONE (23:44)
[2021-05-30] MEDS: BUDESONIDE/FORMETEROL FUMARATE 80/4.5 mcg INHALER IH SCH ×3 (00:36→21:27)
[2021-05-30 09:11] LABS: HEMATOCRIT 37.7 % (32.4-45.2); HEMOGLOBIN 10.8 GM/dL (10.7-15.3); MCH 24.8 pg (25.7-33.7); MCHC 28.7 g/dl (32.0-36.0); MEAN CELL VOLUME 86.4 fl (80-96); RBC 4.36 M/mm3 (3.60-5.2); RDW 14.3 % (11.6-15.6)
[2021-05-30 09:12] LABS: WHITE BLOOD COUNT 8.4 K/mm3 (4.0-10.0)
[2021-05-30 09:13] LABS: MEAN PLT VOLUME 9.3 fl (7.5-11.1); PLATELET COUNT 162 10^3/uL (134-434)
[2021-05-30] MEDS: APIXABAN 2.5 MG TABLET PO SCH ×2 (09:26→21:23)
[2021-05-30] MEDS: ASPIRIN COATED 81 MG TABLET.EC PO SCH ×2 (09:26→09:28)
[2021-05-30] MEDS: PANTOPRAZOLE 20 MG TABLET PO SCH (09:26)
[2021-05-30] MEDS: CLOPIDOGREL BISULFATE 75 MG TABLET (FP) PO SCH ×2 (09:26→09:30)
[2021-05-30 09:47] LABS: CHLORIDE 112 mmol/L (98-107); GLUCOSE,RANDOM 85 mg/dL (74-106); SODIUM 143 mmol/L (136-145)
[2021-05-30 09:49] LABS: BLOOD UREA NITROGEN 11.7 mg/dL (7-18)
[2021-05-30 09:50] LABS: CALCIUM 8.4 mg/dL (8.5-10.1)
[2021-05-30 09:51] LABS: ANION GAP 4 MMOL/L (8-16); CO2 27 mmol/L (21-32)
[2021-05-30 09:52] LABS: MAGNESIUM 2.4 mg/dL (1.8-2.4)
[2021-05-30 09:53] LABS: CREATININE 0.7 mg/dL (0.55-1.3)
[2021-05-30 09:55] LABS: PHOSPHOROUS 2.8 mg/dL (2.5-4.9)
[2021-05-30 11:14] LABS: PLATELET ESTIMATE ADEQUATE
[2021-05-31 07:00] LABS: HEMOGLOBIN 12.4 GM/dL (10.7-15.3); MCH 28.1 pg (25.7-33.7); MCHC 32.7 g/dl (32.0-36.0); MEAN CELL VOLUME 85.7 fl (80-96); MEAN PLT VOLUME 8.6 fl (7.5-11.1); PLATELET COUNT 206 10^3/uL (134-434); RBC 4.43 M/mm3 (3.60-5.2); RDW 14.8 % (11.6-15.6); WHITE BLOOD COUNT 3.8 K/mm3 (4.0-10.0)
[2021-05-31 07:56] LABS: ALBUMIN 2.9 g/dl (3.4-5.0); BLOOD UREA NITROGEN 12.2 mg/dL (7-18); CALCIUM 8.5 mg/dL (8.5-10.1)
[2021-05-31 07:59] LABS: CREATININE 0.7 mg/dL (0.55-1.3)
[2021-05-31 08:00] LABS: BILIRUBIN,TOTAL 0.3 mg/dL (0.2-1); TOT PROT 6.6 g/dl (6.4-8.2)
[2021-05-31 08:10] VITALS: BP 140/83; PULSE 73; TEMP 98.1
[2021-05-31] MEDS: PANTOPRAZOLE 20 MG TABLET PO SCH (09:15)
[2021-05-31] MEDS: APIXABAN 2.5 MG TABLET PO SCH (09:15)
[2021-05-31] MEDS: CLOPIDOGREL BISULFATE 75 MG TABLET (FP) PO SCH (09:15)
[2021-05-31] MEDS: ASPIRIN COATED 81 MG TABLET.EC PO SCH (09:16)
[2021-05-31] MEDS: BUDESONIDE/FORMETEROL FUMARATE 80/4.5 mcg INHALER IH SCH (09:17)
== END 2021-05-31 15:01 | disposition home or self-care (01) ==
LOC: JER 11:36 → JERBED 19:30 → UNDOADMOB 19:30 → INTOOBSV 21:30 → OBSVTOIN 21:30 → J4W 05-30 02:28 → JERBED 05-30 02:28 → J4W 05-30 13:46
PROC: 3E0337Z Introduction of Electrolytic and Water Balance Substance into Peripheral Vein, Percutaneous Approach (ICD-10-PCS; principal; 2021-05-30)
DX: R07.9 Chest pain, unspecified (principal); R06.02 Shortness of breath; E66.9 Obesity, unspecified; Z68.37 Body mass index [BMI] 37.0-37.9, adult; J45.909 Unspecified asthma, uncomplicated; I25.10 Atherosclerotic heart disease of native coronary artery without angina pectoris; Z86.711 Personal history of pulmonary embolism; Z79.01 Long term (current) use of anticoagulants; I45.10 Unspecified right bundle-branch block
CPT/HCPCS: 36415; 71045-TC-FY; 71275-TC; 80048; 80053; 82550; 82553; 83735; 83880; 84100; 84484; 85025; 85027; 85610; 85730; 86850; 86900; 86901; 93005; 93010; 93306-TC; 93970-TC; 96360; 99285-25; C9803; G0378; Q9967; U0003; U0005

== ENCOUNTER 2021-07-12 09:45 | Emergency (ER) | payer OTHER ==
[2021-07-12 09:58] VITALS: BP 138/78; PULSE 80; TEMP 98; BMI 36.3
[2021-07-12] MEDS ORDERED: MAG HYDROX/AL HYDROX/SIMETH -MYLANTA- ORAL SUSPENSION PO ONE (10:50)
[2021-07-12] MEDS ORDERED: ONDANSETRON 4 MG/2 ML VIAL IVPB ONE (10:50)
[2021-07-12] MEDS ORDERED: FAMOTIDINE 20 MG/50 ML IVPB 20 MG in PREMIX 50 IVPB ONE (10:50)
[2021-07-12] MEDS ORDERED: ONDANSETRON 4 MG/2 ML VIAL ONE (10:54)
[2021-07-12] MEDS ORDERED: MAG HYDROX/AL HYDROX/SIMETH 30 ML UNIT-DOSE CUP ONE (10:54)
[2021-07-12] MEDS ORDERED: FAMOTIDINE 20 MG/50 ML IVPB 20 MG/50 ML MG IVPB ONE (10:54)
[2021-07-12 11:39] LABS: VENOUS O2 SATURATION 92.5 % (70-80); VENOUS PCO2 38.4 mmHg (38-52); VENOUS PH 7.419 (7.310-7.410)
[2021-07-12 11:41] LABS: BASO % 0.6 % (0-2.0); EOS % 1.6 % (0-4.5); HEMOGLOBIN 12.7 GM/dL (10.7-15.3); LYMPH % 34.9 % (8-40); MCH 28.3 pg (25.7-33.7); MCHC 33.4 g/dl (32.0-36.0); MEAN CELL VOLUME 84.8 fl (80-96); MEAN PLT VOLUME 8.4 fl (7.5-11.1); MONO % 13.5 % (3.8-10.2); NEUT % 49.4 % (42.8-82.8); PLATELET COUNT 204 10^3/uL (134-434); RBC 4.48 M/mm3 (3.60-5.2); RDW 14.9 % (11.6-15.6); WHITE BLOOD COUNT 4.2 K/mm3 (4.0-10.0)
[2021-07-12 12:01] LABS: CHLORIDE 112 mmol/L (98-107); SODIUM 142 mmol/L (136-145)
[2021-07-12 12:03] LABS: CALCIUM 9.3 mg/dL (8.5-10.1)
[2021-07-12 12:04] LABS: ALBUMIN 3.2 g/dl (3.4-5.0); ANION GAP 4 MMOL/L (8-16); BLOOD UREA NITROGEN 21.1 mg/dL (7-18); CO2 27 mmol/L (21-32); GLUCOSE,RANDOM 99 mg/dL (74-106); LIPASE 207 U/L (73-393)
[2021-07-12 12:07] LABS: CREATININE 0.8 mg/dL (0.55-1.3); SGOT/AST 17 U/L (15-37); SGPT/ALT 24 U/L (13-61)
[2021-07-12 12:08] LABS: TOT PROT 7.2 g/dl (6.4-8.2)
[2021-07-12 12:09] LABS: BILIRUBIN,TOTAL 0.3 mg/dL (0.2-1)
[2021-07-12 12:10] LABS: ALK PHOS 101 U/L (45-117)
[2021-07-12] MEDS ORDERED: SUCRALFATE 1 GM TABLET (FP) PO ONE (15:53)
[2021-07-12] MEDS ORDERED: ACETAMINOPHEN 325 MG TABLET (FP) PO ONE (15:53)
== END 2021-07-12 18:16 | disposition home or self-care (01) ==
LOC: JER 09:45
PROC: 3E033GC Introduction of Other Therapeutic Substance into Peripheral Vein, Percutaneous Approach (ICD-10-PCS; principal; 2021-07-12)
PROC: 3E033GC Introduction of Other Therapeutic Substance into Peripheral Vein, Percutaneous Approach (ICD-10-PCS; 2021-07-12)
DX: R10.9 Unspecified abdominal pain (principal)
CPT/HCPCS: 71046-TC-FY; 80053; 82803; 83690; 84484; 85025; 93005; 93010; 99285-25

== ENCOUNTER 2021-11-09 21:20 | Emergency (ER) | payer OTHER ==
[2021-11-09 21:38] VITALS: BP 158/86; PULSE 85; TEMP 97.6; BMI 37.1
[2021-11-09 22:53] LABS: BASO % 0.9 % (0-2.0); EOS % 3.2 % (0-4.5); HEMATOCRIT 36.7 % (32.4-45.2); LYMPH % 36.6 % (8-40); MCH 27.7 pg (25.7-33.7); MCHC 32.6 g/dl (32.0-36.0); MEAN CELL VOLUME 85.1 fl (80-96); MEAN PLT VOLUME 8.3 fl (7.5-11.1); MONO % 9.9 % (3.8-10.2); NEUT % 49.4 % (42.8-82.8); PLATELET COUNT 193 10^3/uL (134-434); RBC 4.32 M/mm3 (3.60-5.2); RDW 14.4 % (11.6-15.6); WHITE BLOOD COUNT 4.8 K/mm3 (4.0-10.0)
[2021-11-09 23:03] LABS: INR 1.09 (0.83-1.09); PROTHROMBIN TIME (PATIENT) 12.6 SEC (9.7-13.0)
[2021-11-09 23:06] LABS: ACTIVATED PTT 30.6 SECONDS (25.2-36.5)
[2021-11-09 23:13] LABS: ALBUMIN 3.2 g/dl (3.4-5.0); BLOOD UREA NITROGEN 20.1 mg/dL (7-18); CALCIUM 8.8 mg/dL (8.5-10.1)
[2021-11-09 23:16] LABS: CREATININE 1.1 mg/dL (0.55-1.3)
[2021-11-09 23:18] LABS: BILIRUBIN,TOTAL 0.2 mg/dL (0.2-1); TOT PROT 6.8 g/dl (6.4-8.2)
== END 2021-11-10 00:27 | disposition home or self-care (01) ==
LOC: JER 21:20
DX: R00.2 Palpitations (principal)
CPT/HCPCS: 36415; 71046-TC-FY; 80053; 82550; 82553; 84439; 84443; 84484; 85025; 85610; 85730; 93005; 93010; 99285-25

== ENCOUNTER 2022-09-20 10:07 | Emergency (ER) | payer OTHER ==
[2022-09-20 10:22] VITALS: BP 152/82; PULSE 86; RESP 18; TEMP 98.3; BMI 37.1
[2022-09-20] MEDS ORDERED: ACETAMINOPHEN 500 MG TABLET (FP) PO ONE (11:41)
[2022-09-20] MEDS ORDERED: ACETAMINOPHEN 500 MG TABLET (FP) ONE (11:46)
== END 2022-09-20 13:01 | disposition home or self-care (01) ==
LOC: JERFT 10:07 → JER 10:07 → JERFT 13:01
DX: M79.651 Pain in right thigh (principal)
CPT/HCPCS: 73552-TC-RT-FY; 99283-25

== ENCOUNTER 2022-11-17 08:26 | Observation (INO) | payer OTHER ==
[2022-11-17] MEDS ORDERED: MECLIZINE HCL 25 MG TABLET (FP) PO ONE (09:52)
[2022-11-17] MEDS ORDERED: ONDANSETRON 4 MG TABLET PO ONE (09:53)
[2022-11-17] MEDS ORDERED: MECLIZINE HCL 12.5 MG TABLET PO ONE ×3 (09:58→12:31)
[2022-11-17] MEDS ORDERED: ACETAMINOPHEN 1000 MG/100 ML BAG IVPB ONE (09:58)
[2022-11-17] MEDS ORDERED: METOCLOPRAMIDE HCL INJECTION 10 MG/2 ML VIAL IVPB ONE (09:58)
[2022-11-17] MEDS ORDERED: ONDANSETRON 4 MG/2 ML VIAL IVPB ONE (09:58)
[2022-11-17] MEDS ORDERED: ACETAMINOPHEN INJECTION 100 ML IVPB ONE (10:14)
[2022-11-17] MEDS ORDERED: METOCLOPRAMIDE HCL INJECTION 10 MG/2 ML VIAL ONE (10:14)
[2022-11-17] MEDS ORDERED: MECLIZINE HCL 12.5 MG TABLET ONE ×2 (10:14→12:42)
[2022-11-17] MEDS ORDERED: ONDANSETRON 4 MG/2 ML VIAL ONE (10:15)
[2022-11-17 10:40] LABS: BASO % 0.9 % (0-2.0); EOS % 0.7 % (0-4.5); HEMATOCRIT 37.6 % (32.4-45.2); HEMOGLOBIN 12.4 GM/dL (10.7-15.3); LYMPH % 20.4 % (8-40); MCH 28.5 pg (25.7-33.7); MCHC 32.9 g/dl (32.0-36.0); MEAN CELL VOLUME 86.6 fl (80-96); MEAN PLT VOLUME 8.9 fl (7.5-11.1); MONO % 6.7 % (3.8-10.2); NEUT % 71.3 % (42.8-82.8); PLATELET COUNT 211 10^3/uL (134-434); RBC 4.34 M/mm3 (3.60-5.2); RDW 15.1 % (11.6-15.6)
[2022-11-17 10:46] LABS: INR 1.06 (0.83-1.09); PROTHROMBIN TIME (PATIENT) 12.3 SEC (9.7-13.0)
[2022-11-17 10:49] LABS: ACTIVATED PTT 25.7 SECONDS (25.2-36.5)
[2022-11-17] MEDS: ACETAMINOPHEN 500 MG TABLET (FP) PO ONE ×2 (10:50→11:22)
[2022-11-17 11:08] LABS: POTASSIUM 4.1 mmol/L (3.5-5.1)
[2022-11-17 11:10] LABS: BLOOD UREA NITROGEN 16.6 mg/dL (7-18)
[2022-11-17 11:11] LABS: ALBUMIN 3.6 g/dl (3.4-5.0)
[2022-11-17 11:13] LABS: CREATININE 0.7 mg/dL (0.55-1.3)
[2022-11-17 11:15] LABS: BILIRUBIN,TOTAL 0.3 mg/dL (0.2-1); TOT PROT 7.5 g/dl (6.4-8.2)
[2022-11-17] MEDS ORDERED: KETOROLAC TROMETHAMINE 15 MG/ML VIAL IVPUSH ONE ×2 (12:15→12:30)
[2022-11-17] MEDS ORDERED: SODIUM CHLORIDE 0.9% 500 ML INFUS.BAG IV ONE (12:19)
[2022-11-17 12:25] LABS: PH,URINE 8.5 (5.0-8.0); URINE APPEARANCE TURBID; URINE BILIRUBIN NEGATIVE (NEGATIVE); URINE COLOR YELLOW; URINE GLUCOSE (UA) NEGATIVE (NEGATIVE); URINE KETONE 1+ (NEGATIVE); URINE LEUK ESTERASE NEGATIVE (NEGATIVE); URINE NITRITE NEGATIVE (NEGATIVE); URINE PROTEIN NEGATIVE (NEGATIVE); URINE UROBILINOGEN 0.2 mg/dL (0.2-1.0)
[2022-11-17] MEDS ORDERED: KETOROLAC TROMETHAMINE 15 MG/ML VIAL ONE (12:43)
[2022-11-17] MEDS ORDERED: METOCLOPRAMIDE HCL INJECTION 10 MG/2 ML VIAL IVPUSH PRN (14:47)
[2022-11-17] MEDS ORDERED: DOCUSATE SODIUM 100 MG CAPSULE (FP) PO PRN (14:50)
[2022-11-17] MEDS ORDERED: ALBUTEROL SO4 HFA INHALER IH PRN (14:50)
[2022-11-17 16:52] VITALS: BMI 38.0
[2022-11-18] MEDS: APIXABAN 2.5 MG TABLET PO SCH ×3 (06:31→21:26)
[2022-11-18] MEDS: BUDESONIDE/FORMETEROL FUMARATE 80/4.5 mcg INHALER IH SCH ×4 (06:31→21:26)
[2022-11-18] MEDS: PANTOPRAZOLE 20 MG TABLET PO SCH (10:46)
[2022-11-18] MEDS ORDERED: MECLIZINE HCL 12.5 MG TABLET PO PRN (11:38)
[2022-11-18] MEDS: ACETAMINOPHEN 325 MG TABLET (FP) PO PRN (21:28)
[2022-11-19 03:47] VITALS: RESP 18
[2022-11-19] MEDS: APIXABAN 2.5 MG TABLET PO SCH (09:15)
[2022-11-19] MEDS: ACETAMINOPHEN 325 MG TABLET (FP) PO PRN (09:15)
[2022-11-19] MEDS: PANTOPRAZOLE 20 MG TABLET PO SCH (09:17)
[2022-11-19] MEDS: BUDESONIDE/FORMETEROL FUMARATE 80/4.5 mcg INHALER IH SCH (09:17)
[2022-11-19 15:25] VITALS: BP 137/76; PULSE 76; TEMP 98.7
== END 2022-11-19 18:14 | disposition home or self-care (01) ==
LOC: JER 08:26 → JERBED 14:12 → J4W 15:36
PROVIDERS: ADMIT Internal Medicine; ATTEND Internal Medicine
PROC: 3E033NZ Introduction of Analgesics, Hypnotics, Sedatives into Peripheral Vein, Percutaneous Approach (ICD-10-PCS; principal; 2022-11-17)
PROC: 3E033GC Introduction of Other Therapeutic Substance into Peripheral Vein, Percutaneous Approach (ICD-10-PCS; 2022-11-17)
PROC: 3E0337Z Introduction of Electrolytic and Water Balance Substance into Peripheral Vein, Percutaneous Approach (ICD-10-PCS; 2022-11-17)
PROC: 3E0F7SF Introduction of Other Gas into Respiratory Tract, Via Natural or Artificial Opening (ICD-10-PCS; 2022-11-17)
DX: R42 Dizziness and giddiness (principal); G45.0 Vertebro-basilar artery syndrome; Z86.711 Personal history of pulmonary embolism; Z86.718 Personal history of other venous thrombosis and embolism; Z79.01 Long term (current) use of anticoagulants; I25.10 Atherosclerotic heart disease of native coronary artery without angina pectoris
CPT/HCPCS: 0241U-QW; 36415; 70450-TC; 70551-TC; 71045-TC-FY; 80053; 81003; 84484; 85025; 85610; 85730; 93005; 93010; 94640; 96374; 96375; 99285-25; G0378

== ENCOUNTER 2022-12-25 03:50 | Day surgery (SDC) | payer OTHER ==
[2022-12-24 16:55] VITALS: BMI 37.1
[2022-12-25] MEDS ORDERED: BUPIVACAINE HCL/PF 0.5% (5MG/ML) 10 ML VIAL IJ ONE (11:45)
[2022-12-25] MEDS ORDERED: LIDOCAINE HCL 1% PRESERVATIVE FREE - 30ML VIAL IJ ONE (11:45)
[2022-12-25] MEDS ORDERED: IOHEXOL 180 MG/1 ML ML IJ ONE (11:46)
[2022-12-25] MEDS ORDERED: TRIAMCINOLONE ACETONIDE 40 MG/ML 10 ML VIAL IJ ONE (11:47)
[2022-12-25 12:10] VITALS: PULSE 82
[2022-12-25 13:15] VITALS: BP 130/80; RESP 18; TEMP 98
[2022-12-25] MEDS ORDERED: ACETAMINOPHEN 500 MG TABLET (FP) PO PRN (13:23)
== END 2022-12-25 13:16 | disposition home or self-care (01) ==
LOC: JASU-SURG 03:50
PROVIDERS: ATTEND Pain Medicine Pain Medicine
PROC: 3E0U3BZ Introduction of Anesthetic Agent into Joints, Percutaneous Approach (ICD-10-PCS; 2022-12-25)
PROC: 3E0U33Z Introduction of Anti-inflammatory into Joints, Percutaneous Approach (ICD-10-PCS; principal; 2022-12-25 11:30)
DX: M16.11 Unilateral primary osteoarthritis, right hip (principal)
CPT/HCPCS: 76000-TC-FY

== ENCOUNTER 2023-01-25 05:29 | Day surgery (SDC) | payer OTHER ==
[2023-01-23 14:32] VITALS: BMI 37.1
[~2023-01-25 05:29] MED LIST: BUPIVACAINE HCL/PF 0.5% (5MG/ML) 10 ML VIAL IJ ONE; IOHEXOL 180 MG/1 ML ML IJ ONE; LIDOCAINE HCL 1% PRESERVATIVE FREE - 30ML VIAL IJ ONE; TRIAMCINOLONE ACETONIDE 40 MG/ML 10 ML VIAL IJ ONE
[2023-01-25] MEDS ORDERED: LIDOCAINE HCL/PF 1% SDV 5ML VIAL ONE (07:31)
[2023-01-25] MEDS ORDERED: TRIAMCINOLONE ACET 40MG/1ML VIAL ONE (07:31)
[2023-01-25] MEDS ORDERED: BUPIVACAINE HCL/PF 0.5% (5MG/ML) 10 ML VIAL ONE (07:31)
[2023-01-25] MEDS ORDERED: ACETAMINOPHEN 500 MG TABLET (FP) PO PRN (14:38)
== END 2023-01-25 08:38 | disposition home or self-care (01) ==
LOC: JASU-SURG 05:29
PROVIDERS: ATTEND Pain Medicine Pain Medicine
PROC: 3E033GC Introduction of Other Therapeutic Substance into Peripheral Vein, Percutaneous Approach (ICD-10-PCS; principal; 2023-01-25)
DX: Z53.8 Procedure and treatment not carried out for other reasons (principal)

== ENCOUNTER 2023-01-25 08:39 | Emergency (ER) | payer OTHER ==
[2023-01-25 08:53] VITALS: BP 136/81; PULSE 74; RESP 16; TEMP 98.2; BMI 37.1
[2023-01-25] MEDS ORDERED: MAG HYDROX/AL HYDROX/SIMETH 30 ML UNIT-DOSE CUP PO ONE (09:30)
[2023-01-25] MEDS ORDERED: FAMOTIDINE 20 MG/50 ML IVPB 20 MG/50 ML MG IVPB ONE ×2 (09:30→09:33)
[2023-01-25] MEDS ORDERED: MAG HYDROX/AL HYDROX/SIMETH 30 ML UNIT-DOSE CUP ONE (09:33)
[2023-01-25 10:48] LABS: BASO % 0.7 % (0-2.0); EOS % 2.1 % (0-4.5); HEMATOCRIT 40.3 % (32.4-45.2); HEMOGLOBIN 12.6 GM/dL (10.7-15.3); LYMPH % 32.5 % (8-40); MCH 28.2 pg (25.7-33.7); MCHC 31.4 g/dl (32.0-36.0); MEAN CELL VOLUME 89.9 fl (80-96); MEAN PLT VOLUME 8.7 fl (7.5-11.1); MONO % 14.5 % (3.8-10.2); NEUT % 50.2 % (42.8-82.8); PLATELET COUNT 211 10^3/uL (134-434); RBC 4.48 M/mm3 (3.60-5.2); RDW 14.4 % (11.6-15.6); WHITE BLOOD COUNT 3.8 K/mm3 (4.0-10.0)
[2023-01-25 10:53] LABS: INR 1.1 (0.83-1.09); PROTHROMBIN TIME (PATIENT) 12.8 SEC (9.7-13.0)
[2023-01-25 10:55] LABS: ACTIVATED PTT 29.9 SECONDS (25.2-36.5)
[2023-01-25 11:05] LABS: POTASSIUM 4.3 mmol/L (3.5-5.1)
[2023-01-25 11:07] LABS: ALBUMIN 3.3 g/dl (3.4-5.0); BLOOD UREA NITROGEN 18.5 mg/dL (7-18); CALCIUM 9.6 mg/dL (8.5-10.1); MAGNESIUM 2.3 mg/dL (1.8-2.4)
[2023-01-25 11:10] LABS: CREATININE 0.8 mg/dL (0.55-1.3); PHOSPHOROUS 2.8 mg/dL (2.5-4.9)
[2023-01-25 11:12] LABS: BILIRUBIN,TOTAL 0.1 mg/dL (0.2-1)
== END 2023-01-25 11:48 | disposition home or self-care (01) ==
LOC: JER 08:39
PROC: 3E033GC Introduction of Other Therapeutic Substance into Peripheral Vein, Percutaneous Approach (ICD-10-PCS; principal; 2023-01-25)
DX: R07.9 Chest pain, unspecified (principal); K21.9 Gastro-esophageal reflux disease without esophagitis
CPT/HCPCS: 36415; 71045-TC-FY; 80053; 83735; 84100; 84484; 85025; 85610; 85730; 93005; 93010; 96365; 99284-25

== ENCOUNTER 2023-02-08 05:11 | Day surgery (SDC) | payer OTHER ==
[2023-02-01 15:53] VITALS: BMI 36.9
[2023-02-08] MEDS ORDERED: BUPIVACAINE HCL/PF 0.5% (5MG/ML) 10 ML VIAL ONE (07:18)
[2023-02-08] MEDS ORDERED: LIDOCAINE HCL/PF 1% SDV 5ML VIAL ONE (07:18)
[2023-02-08] MEDS ORDERED: TRIAMCINOLONE ACET 40MG/1ML VIAL ONE ×2 (07:18→09:13)
[2023-02-08 07:54] VITALS: RESP 20
[2023-02-08] MEDS ORDERED: ACETAMINOPHEN 500 MG TABLET (FP) PO PRN (07:56)
[2023-02-08] MEDS ORDERED: LIDOCAINE 1% P/F 10 MG/ML VIAL INF ONE ×2 (09:22→09:24)
[2023-02-08] MEDS ORDERED: BUPIVACAINE HCL/PF 0.5% (5MG/ML) 10 ML VIAL IJ ONE ×2 (09:23→09:24)
[2023-02-08] MEDS ORDERED: TRIAMCINOLONE ACET 40MG/1ML VIAL IJ ONE ×2 (09:23→09:24)
[2023-02-08] MEDS ORDERED: IOHEXOL 180 MG/1 ML ML IJ ONE (09:24)
[2023-02-08 10:05] VITALS: BP 140/75; PULSE 78; TEMP 100
== END 2023-02-08 10:37 | disposition home or self-care (01) ==
LOC: JASU-SURG 05:11
PROVIDERS: ATTEND Pain Medicine Pain Medicine
PROC: 3E0U3BZ Introduction of Anesthetic Agent into Joints, Percutaneous Approach (ICD-10-PCS; 2023-02-08)
PROC: 3E0U33Z Introduction of Anti-inflammatory into Joints, Percutaneous Approach (ICD-10-PCS; principal; 2023-02-08 10:00)
DX: M53.3 Sacrococcygeal disorders, not elsewhere classified (principal)
CPT/HCPCS: 76000-TC-FY

== ENCOUNTER 2023-04-26 04:15 | Day surgery (SDC) | payer OTHER ==
[2023-04-24 17:17] VITALS: BMI 35.5
[2023-04-26] MEDS ORDERED: DEXAMETHASONE SOD PHOSPHATE 10 MG/1 ML VIAL ONE (07:31)
[2023-04-26] MEDS ORDERED: LIDOCAINE HCL/PF 1% SDV 5ML VIAL ONE (07:31)
[2023-04-26] MEDS ORDERED: ACETAMINOPHEN 500 MG TABLET (FP) PO PRN (10:26)
[2023-04-26] MEDS ORDERED: LIDOCAINE 1% P/F 10 MG/ML VIAL INF ONE (13:53)
[2023-04-26] MEDS ORDERED: IOHEXOL 180 MG/1 ML ML IJ ONE (13:54)
[2023-04-26] MEDS ORDERED: DEXAMETHASONE SOD PHOSPHATE 10 MG/1 ML VIAL IVPUSH ONE (13:55)
[2023-04-26 14:55] VITALS: TEMP 97.9
[2023-04-26 14:58] VITALS: BP 158/63; PULSE 77; RESP 16
== END 2023-04-26 15:07 | disposition home or self-care (01) ==
LOC: JASU-SURG 04:15
PROVIDERS: ATTEND Pain Medicine Pain Medicine
PROC: 3E0R3BZ Introduction of Anesthetic Agent into Spinal Canal, Percutaneous Approach (ICD-10-PCS; 2023-04-26)
PROC: 3E0R33Z Introduction of Anti-inflammatory into Spinal Canal, Percutaneous Approach (ICD-10-PCS; principal; 2023-04-26 13:30)
DX: M48.061 Spinal stenosis, lumbar region without neurogenic claudication (principal); M54.16 Radiculopathy, lumbar region
CPT/HCPCS: 76000-TC-FY; J1100

== ENCOUNTER 2023-05-24 04:23 | Day surgery (SDC) | payer OTHER ==
[2023-05-23 09:07] VITALS: BMI 35.5
[~2023-05-24 04:23] MED LIST changes: +LIDOCAINE 1% P/F 10 MG/ML VIAL INF ONE; -LIDOCAINE HCL 1% PRESERVATIVE FREE - 30ML VIAL IJ ONE; +TRIAMCINOLONE ACET 40MG/1ML VIAL IM ONE; -TRIAMCINOLONE ACETONIDE 40 MG/ML 10 ML VIAL IJ ONE
[2023-05-24 09:35] VITALS: RESP 18
[2023-05-24] MEDS ORDERED: LIDOCAINE 1% P/F 10 MG/ML VIAL INF ONE (11:08)
[2023-05-24] MEDS ORDERED: BUPIVACAINE HCL/PF 0.5% (5MG/ML) 10 ML VIAL IJ ONE (11:08)
[2023-05-24] MEDS ORDERED: IOHEXOL 180 MG/1 ML ML IJ ONE (11:09)
[2023-05-24] MEDS ORDERED: TRIAMCINOLONE ACET 40MG/1ML VIAL IM ONE (11:09)
[2023-05-24] MEDS ORDERED: ACETAMINOPHEN 500 MG TABLET (FP) PO PRN (12:27)
[2023-05-24 13:08] VITALS: BP 117/73; PULSE 72; TEMP 97.9
== END 2023-05-24 12:10 | disposition home or self-care (01) ==
LOC: JASU-SURG 04:23
PROVIDERS: ATTEND Pain Medicine Pain Medicine
PROC: 3E0U3BZ Introduction of Anesthetic Agent into Joints, Percutaneous Approach (ICD-10-PCS; 2023-05-24)
PROC: 3E0U33Z Introduction of Anti-inflammatory into Joints, Percutaneous Approach (ICD-10-PCS; principal; 2023-05-24 11:00)
DX: M53.3 Sacrococcygeal disorders, not elsewhere classified (principal)
CPT/HCPCS: 76000-TC-FY

== ENCOUNTER 2023-06-21 04:17 | Day surgery (SDC) | payer OTHER ==
[2023-06-20 10:52] VITALS: BMI 35.5
[2023-06-21] MEDS ORDERED: TRIAMCINOLONE ACET 40MG/1ML VIAL ONE (07:26)
[2023-06-21] MEDS ORDERED: LIDOCAINE HCL/PF 1% SDV 5ML VIAL ONE (07:27)
[2023-06-21] MEDS ORDERED: BUPIVACAINE HCL/PF 0.5% (5MG/ML) 10 ML VIAL ONE (07:27)
[2023-06-21] MEDS ORDERED: ACETAMINOPHEN 500 MG TABLET (FP) PO PRN (10:18)
[2023-06-21 11:31] VITALS: TEMP 98.6
[2023-06-21] MEDS ORDERED: TRIAMCINOLONE ACET 40MG/1ML VIAL IJ ONE (12:35)
[2023-06-21] MEDS ORDERED: IOHEXOL 180 MG/1 ML ML IJ ONE (12:35)
[2023-06-21] MEDS ORDERED: BUPIVACAINE HCL/PF 0.5% (5MG/ML) 10 ML VIAL IJ ONE (12:36)
[2023-06-21 12:56] VITALS: BP 147/67; PULSE 75; RESP 20
== END 2023-06-21 13:20 | disposition home or self-care (01) ==
LOC: JASU-SURG 04:17
PROVIDERS: ATTEND Pain Medicine Pain Medicine
PROC: 3E0U3BZ Introduction of Anesthetic Agent into Joints, Percutaneous Approach (ICD-10-PCS; 2023-06-21)
PROC: 3E0U33Z Introduction of Anti-inflammatory into Joints, Percutaneous Approach (ICD-10-PCS; principal; 2023-06-21 12:30)
DX: M16.11 Unilateral primary osteoarthritis, right hip (principal)
CPT/HCPCS: 76000-TC-FY

== ENCOUNTER 2023-08-20 15:23 | Emergency (ER) | payer OTHER ==
[2023-08-20 15:40] VITALS: BP 142/78; PULSE 96; RESP 18; TEMP 98; BMI 37.1
[2023-08-20] MEDS ORDERED: LIDOCAINE 4% PATCH TP ONE (16:49)
[2023-08-20] MEDS ORDERED: KETOROLAC TROMETHAMINE 30 MG/1 ML VIAL ONE (16:49)
[2023-08-20] MEDS: LIDOCAINE 5% TOPICAL PATCH TP ONE (16:56)
[2023-08-20] MEDS: KETOROLAC TROMETHAMINE 30 MG/1 ML VIAL IM ONE (16:56)
[2023-08-20] MEDS ORDERED: LIDOCAINE PATCH REMOVAL MC SCH (22:00)
== END 2023-08-20 17:07 | disposition home or self-care (01) ==
LOC: JERFT 15:23
PROC: 3E0233Z Introduction of Anti-inflammatory into Muscle, Percutaneous Approach (ICD-10-PCS; principal; 2023-08-20)
DX: M54.50 Low back pain, unspecified (principal); S39.012A Strain of muscle, fascia and tendon of lower back, initial encounter; X58.XXXA Exposure to other specified factors, initial encounter
CPT/HCPCS: 96372; 99284-25

== ENCOUNTER 2023-09-06 03:54 | Day surgery (SDC) | payer OTHER ==
[2023-09-04 11:22] VITALS: BMI 35.5
[2023-09-06] MEDS ORDERED: LIDOCAINE HCL/PF 1% SDV 5ML VIAL ONE (07:35)
[2023-09-06] MEDS ORDERED: DEXAMETHASONE SOD PHOSPHATE 10 MG/1 ML VIAL ONE (07:35)
[2023-09-06] MEDS ORDERED: ACETAMINOPHEN 500 MG TABLET (FP) PO PRN (12:13)
[2023-09-06] MEDS: LIDOCAINE HCL 1%, 10 MG/ML (50 mL VIAL) INF ONE (12:32)
[2023-09-06] MEDS: DEXAMETHASONE SOD PHOSPHATE 10 MG/1 ML VIAL IVPUSH ONE (12:32)
[2023-09-06] MEDS: IOHEXOL 180 MG/1 ML ML IJ ONE (12:32)
[2023-09-06 12:51] VITALS: BP 120/65; PULSE 76; RESP 18; TEMP 98
== END 2023-09-06 13:34 | disposition home or self-care (01) ==
LOC: JASU-SURG 03:54
PROVIDERS: ATTEND Pain Medicine Pain Medicine
PROC: 3E0R3BZ Introduction of Anesthetic Agent into Spinal Canal, Percutaneous Approach (ICD-10-PCS; 2023-09-06)
PROC: 3E0R33Z Introduction of Anti-inflammatory into Spinal Canal, Percutaneous Approach (ICD-10-PCS; principal; 2023-09-06 11:45)
DX: M54.16 Radiculopathy, lumbar region (principal); M48.061 Spinal stenosis, lumbar region without neurogenic claudication
CPT/HCPCS: 76000-TC-FY; J1100

== ENCOUNTER 2023-10-18 04:15 | Day surgery (SDC) | payer OTHER ==
[2023-10-11 12:42] VITALS: BMI 35.5
[~2023-10-18 04:15] MED LIST changes: +ACETAMINOPHEN 500 MG TABLET (FP) PO PRN; -BUPIVACAINE HCL/PF 0.5% (5MG/ML) 10 ML VIAL IJ ONE; -IOHEXOL 180 MG/1 ML ML IJ ONE; -LIDOCAINE 1% P/F 10 MG/ML VIAL INF ONE; -TRIAMCINOLONE ACET 40MG/1ML VIAL IM ONE
[2023-10-18] MEDS ORDERED: LIDOCAINE HCL 1%, 10 MG/ML (20ML VIAL) ONE (07:14)
[2023-10-18] MEDS ORDERED: SODIUM CHLORIDE 0.9% P/F 10 ML VIAL IJ ONE (07:33)
[2023-10-18] MEDS: LIDOCAINE HCL 1% PRESERVATIVE FREE - 30ML VIAL IJ ONE (08:45)
[2023-10-18] MEDS ORDERED: ACETAMINOPHEN 500 MG TABLET (FP) PO PRN (08:48)
[2023-10-18 09:53] VITALS: BP 138/80; PULSE 84; RESP 18; TEMP 98
== END 2023-10-18 10:40 | disposition home or self-care (01) ==
LOC: JASU-SURG 04:15
PROVIDERS: ATTEND Pain Medicine Pain Medicine
PROC: 01HY3MZ Insertion of Neurostimulator Lead into Peripheral Nerve, Percutaneous Approach (ICD-10-PCS; principal; 2023-10-18 08:15)
DX: G89.4 Chronic pain syndrome (principal)
CPT/HCPCS: 64555; C1778

== ENCOUNTER 2023-12-27 11:26 | Emergency (ER) | payer OTHER ==
[2023-12-27 11:51] VITALS: BP 156/79; PULSE 73; RESP 19; TEMP 98.5; BMI 36.3
[2023-12-27] MEDS ORDERED: LIDOCAINE 4% PATCH TP ONE (13:06)
[2023-12-27] MEDS: LIDOCAINE 4% PATCH TP ONE (13:19)
[2023-12-27] MEDS ORDERED: LIDOCAINE PATCH REMOVAL MC SCH (22:00)
== END 2023-12-27 14:09 | disposition home or self-care (01) ==
LOC: JERFT 11:26
DX: S39.012A Strain of muscle, fascia and tendon of lower back, initial encounter (principal); M25.512 Pain in left shoulder; X58.XXXA Exposure to other specified factors, initial encounter
CPT/HCPCS: 73030-TC-LT-FY; 99283-25

== ENCOUNTER 2024-02-15 08:30 | Emergency (ER) | payer OTHER ==
[2024-02-15 08:42] VITALS: TEMP 98.8; BMI 32.3
[2024-02-15] MEDS ORDERED: ACETAMINOPHEN INJECTION 100 ML IVPB ONE (10:54)
[2024-02-15] MEDS ORDERED: FAMOTIDINE 20 MG/50 ML IVPB 20 MG/50 ML MG IVPB ONE (10:54)
[2024-02-15 11:08] LABS: INR 1.03 (0.83-1.09); PROTHROMBIN TIME (PATIENT) 11.8 SEC (9.7-13.0)
[2024-02-15 11:12] LABS: ACTIVATED PTT 30.1 SECONDS (25.2-36.5)
[2024-02-15] MEDS: FAMOTIDINE 20 MG/50 ML IVPB 20 MG/50 ML MG IVPB ONE (11:16)
[2024-02-15] MEDS: CLOTRIMAZOLE 1% CREAM TP SCH (11:16)
[2024-02-15] MEDS: ACETAMINOPHEN 1000 MG/100 ML BAG IVPB ONE (11:16)
[2024-02-15 11:35] LABS: POTASSIUM 5.2 mmol/L (3.5-5.1)
[2024-02-15 11:37] LABS: CALCIUM 9.5 mg/dL (8.5-10.1)
[2024-02-15 11:38] LABS: ALBUMIN 3.6 g/dl (3.4-5.0); BLOOD UREA NITROGEN 14.7 mg/dL (7-18)
[2024-02-15 11:41] LABS: CREATININE 0.8 mg/dL (0.55-1.3)
[2024-02-15 11:42] LABS: BILIRUBIN,TOTAL 0.4 mg/dL (0.2-1); TOT PROT 7.5 g/dl (6.4-8.2)
[2024-02-15 11:47] LABS: BASO % 0.7 % (0-2.0); EOS % 1.6 % (0-4.5); HEMATOCRIT 39.9 % (32.4-45.2); HEMOGLOBIN 12.7 GM/dL (10.7-15.3); LYMPH % 41.1 % (8-40); MCH 28.7 pg (25.7-33.7); MCHC 31.8 g/dl (32.0-36.0); MEAN CELL VOLUME 90.4 fl (80-96); MEAN PLT VOLUME 7.7 fl (7.5-11.1); MONO % 11.3 % (3.8-10.2); NEUT % 45.3 % (42.8-82.8); PLATELET COUNT 183 10^3/uL (134-434); RBC 4.42 M/mm3 (3.60-5.2); RDW 14.2 % (11.6-15.6); WHITE BLOOD COUNT 3.9 K/mm3 (4.0-10.0)
[2024-02-15] MEDS ORDERED: MAG HYDROX/AL HYDROX/SIMETH 30 ML UNIT-DOSE CUP PO ONE (12:42)
[2024-02-15 13:18] VITALS: BP 141/71; PULSE 61; RESP 20
== END 2024-02-15 16:33 | disposition home or self-care (01) ==
LOC: JER 08:30
PROC: 3E033GC Introduction of Other Therapeutic Substance into Peripheral Vein, Percutaneous Approach (ICD-10-PCS; principal; 2024-02-15)
DX: R10.13 Epigastric pain (principal); L29.9 Pruritus, unspecified; R21 Rash and other nonspecific skin eruption; Z20.822 Contact with and (suspected) exposure to COVID-19
CPT/HCPCS: 0241U-QW; 71046-TC-FY; 80053; 83690; 84484; 85025; 85610; 85730; 93005; 93010; 96365; 99285-25

== ENCOUNTER 2024-07-31 11:40 | Emergency (ER) | payer OTHER ==
[2024-07-31 12:01] VITALS: BP 142/80; PULSE 91; RESP 20; TEMP 98.6; BMI 32.3
[2024-07-31 15:26] LABS: URINE APPEARANCE CLEAR; URINE BILIRUBIN NEGATIVE (NEGATIVE); URINE COLOR YELLOW; URINE GLUCOSE (UA) NEGATIVE (NEGATIVE); URINE KETONE TRACE (NEGATIVE); URINE LEUK ESTERASE NEGATIVE (NEGATIVE); URINE NITRITE NEGATIVE (NEGATIVE); URINE PROTEIN NEGATIVE (NEGATIVE); URINE UROBILINOGEN 0.2 mg/dL (0.2-1.0)
== END 2024-07-31 16:38 | disposition home or self-care (01) ==
LOC: JERFT 11:40
DX: S39.012A Strain of muscle, fascia and tendon of lower back, initial encounter (principal); R10.9 Unspecified abdominal pain; X58.XXXA Exposure to other specified factors, initial encounter
CPT/HCPCS: 81003; 87086; 99283-25

== ENCOUNTER 2024-09-08 10:35 | Emergency (ER) | payer OTHER ==
[2024-09-08 10:45] VITALS: BP 138/75; PULSE 94; RESP 18; TEMP 99.1; BMI 35.5
[2024-09-08] MEDS ORDERED: ALBUTEROL SO4 2.5/IPRATROPIUM 0.5 INH SOL 3 ML VIAL.NEB. NEB ONE (11:22)
[2024-09-08] MEDS: ALBUTEROL SO4 2.5/IPRATROPIUM 0.5 INH SOL 3 ML VIAL.NEB. NEB ONE (11:37)
[2024-09-08] MEDS ORDERED: AMOXICILLIN 250 MG CAPSULE ONE (11:53)
[2024-09-08] MEDS: AMOXICILLIN 500 MG CAPSULE (FP) PO ONE (11:58)
== END 2024-09-08 11:58 | disposition home or self-care (01) ==
LOC: JERFT 10:35
DX: J32.9 Chronic sinusitis, unspecified (principal); R05.9 Cough, unspecified
CPT/HCPCS: 71046-TC-FY; 99284-25

== ENCOUNTER 2025-02-28 09:29 | Observation (INO) | payer OTHER ==
[2025-02-28 11:08] LABS: ABSOLUTE IMMATURE GRANULOCYTES 0.01 x10^3/uL (0.0-0.031); BASOPHILS # 0.01 x10^3/uL (0.01-0.08); EOSINOPHIL % 0.0 % (0.7-5.8); EOSINOPHILS # 0.00 x10^3/uL (0.04-0.36); MCHC 30.7 g/dl (32.2-35.5); MEAN CELL VOLUME 89.9 fl (79.4-94.8); MEAN PLT VOLUME 9.7 fl (9.4-12.3); MONOCYTE # 0.59 x10^3/uL (0.24-0.86); MONOCYTE % 18.0 % (4.7-12.5); RDW 14.6 % (12.4-16.6)
[2025-02-28 11:16] LABS: INR 1.1 (0.83-1.09); PROTHROMBIN TIME (PATIENT) 12.0 SEC (9.7-13.0)
[2025-02-28 11:19] LABS: ACTIVATED PTT 27.4 SECONDS (25.2-36.5)
[2025-02-28] MEDS ORDERED: LIDOCAINE 4% PATCH TP ONE (11:29)
[2025-02-28] MEDS: KETOROLAC TROMETHAMINE 15 MG/ML VIAL IVPUSH ONE (11:30)
[2025-02-28] MEDS ORDERED: KETOROLAC TROMETHAMINE 15 MG/ML VIAL ONE (11:30)
[2025-02-28] MEDS: LIDOCAINE 4% PATCH TP ONE (11:31)
[2025-02-28 11:36] LABS: GLUCOSE,RANDOM 97.0 mg/dL (74-106)
[2025-02-28 11:37] LABS: TOT PROT 7.0 g/dl (6.4-8.2)
[2025-02-28 11:38] LABS: CO2 22.0 mmol/L (21-32)
[2025-02-28 11:39] LABS: ALK PHOS 78.0 U/L (40-150)
[2025-02-28 11:42] LABS: CREATININE 0.89 mg/dL (0.55-1.3); SGOT/AST 40.0 U/L (5-34); SGPT/ALT 21.0 U/L (0-55)
[2025-02-28] MEDS ORDERED: ALBUTEROL SO4 HFA INHALER IH PRN (15:32)
[2025-02-28] MEDS ORDERED: guaiFENesin 200 MG/10 ML 10 ML UNIT-DOSE CUPS PO PRN (15:35)
[2025-02-28] MEDS: BUDESONIDE/FORMETEROL FUMARATE 80/4.5 mcg INHALER IH STA (20:00)
[2025-02-28] MEDS ORDERED: APIXABAN 5 MG TABLET ONE (22:13)
[2025-02-28] MEDS ORDERED: ACETAMINOPHEN 325 MG TABLET (FP) ONE (22:13)
[2025-02-28] MEDS ORDERED: ROSUVASTATIN CA 20 MG TABLET ONE (22:13)
[2025-02-28] MEDS: LIDOCAINE PATCH REMOVAL MC ONE (22:25)
[2025-02-28] MEDS: LIDOCAINE PATCH REMOVAL MC SCH (22:25)
[2025-02-28] MEDS: ACETAMINOPHEN 325 MG TABLET (FP) PO PRN (22:25)
[2025-02-28] MEDS: APIXABAN 5 MG TABLET PO SCH (22:53)
[2025-02-28] MEDS: ROSUVASTATIN CA 20 MG TABLET PO SCH (22:53)
[2025-03-01 09:14] LABS: EPI CELLS >36 /uL (0-25.1); HYALINE CASTS 5 /uL (0-3.1); URINE APPEARANCE CLOUDY; URINE BACTERIA 1652 /uL (0-1359); URINE BILIRUBIN NEGATIVE (NEGATIVE); URINE COLOR YELLOW; URINE GLUCOSE (UA) NEGATIVE (NEGATIVE); URINE KETONE TRACE (NEGATIVE); URINE LEUK ESTERASE NEGATIVE (NEGATIVE); URINE NITRITE NEGATIVE (NEGATIVE); URINE PROTEIN 1+ (NEGATIVE); URINE RBC 34 /uL (0-23.9); URINE UROBILINOGEN 0.2 mg/dL (0.2-1.0); URINE WBC 28 /uL (0-25.8)
[2025-03-01] MEDS ORDERED: APIXABAN 5 MG TABLET ONE (09:22)
[2025-03-01] MEDS ORDERED: FAMOTIDINE 20 MG TABLET ONE (09:23)
[2025-03-01] MEDS ORDERED: LIDOCAINE 4% PATCH TP ONE (09:23)
[2025-03-01] MEDS ORDERED: ASCORBIC ACID 500 MG TABLET (FP) ONE (09:23)
[2025-03-01] MEDS: LIDOCAINE 4% PATCH TP SCH (09:34)
[2025-03-01] MEDS: CHOLECALCIFEROL (VIT D3) 400 UNIT (10 MCG) TABLET PO SCH (09:35)
[2025-03-01] MEDS: OMEGA-3 ACID ETHYL ESTERS (FATTY-ACIDS) 1 GM CAPSULE (FP) PO SCH (09:35)
[2025-03-01] MEDS: ASCORBIC ACID 500 MG TABLET (FP) PO SCH (09:35)
[2025-03-01] MEDS: FAMOTIDINE 20 MG TABLET PO SCH (09:35)
[2025-03-01 12:03] LABS: URINE CRYSTALS PRESENT /hpf
[2025-03-02 06:22] VITALS: RESP 18
[2025-03-02 12:22] VITALS: TEMP 97.7
[2025-03-02 14:16] VITALS: BMI 40.5
[2025-03-02 14:20] VITALS: BP 123/76; PULSE 71
== END 2025-03-02 19:11 | disposition home or self-care (01) ==
LOC: JER 09:29 → JERBED 15:05 → J6W TELE 03-01 10:11
PROVIDERS: ADMIT Internal Medicine; ATTEND Internal Medicine
PROC: 3E0333Z Introduction of Anti-inflammatory into Peripheral Vein, Percutaneous Approach (ICD-10-PCS; principal; 2025-02-28)
DX: I26.99 Other pulmonary embolism without acute cor pulmonale (principal); J45.909 Unspecified asthma, uncomplicated; I25.10 Atherosclerotic heart disease of native coronary artery without angina pectoris; Z79.01 Long term (current) use of anticoagulants; E78.5 Hyperlipidemia, unspecified; Z87.891 Personal history of nicotine dependence; I11.9 Hypertensive heart disease without heart failure; Z86.73 Personal history of transient ischemic attack (TIA), and cerebral infarction without residual deficits
CPT/HCPCS: 36415; 71046-TC-FY; 71101-TC-RT-FY; 71275-TC; 80053; 81003; 84484; 85025; 85610; 85730; 86850; 86900; 86901; 87086; 87637-QW; 93005; 93010; 96374; 99291; G0378; Q9967

== ENCOUNTER 2025-05-01 16:42 | Emergency (ER) | payer OTHER ==
[2025-05-01 17:18] VITALS: BP 149/85; PULSE 95; RESP 18; TEMP 98.3; BMI 35.5
[2025-05-01 17:20] LABS: ABSOLUTE IMMATURE GRANULOCYTES 0.01 x10^3/uL (0.0-0.031); BASOPHILS # 0.03 x10^3/uL (0.01-0.08); EOSINOPHIL % 5.6 % (0.7-5.8); EOSINOPHILS # 0.27 x10^3/uL (0.04-0.36); MCHC 30.7 g/dl (32.2-35.5); MEAN CELL VOLUME 90.6 fl (79.4-94.8); MEAN PLT VOLUME 9.9 fl (9.4-12.3); MONOCYTE # 0.63 x10^3/uL (0.24-0.86); MONOCYTE % 13.0 % (4.7-12.5); RDW 14.5 % (12.4-16.6)
[2025-05-01] MEDS ORDERED: MAG HYDROX/AL HYDROX/SIMETH 30 ML UNIT-DOSE CUP ONE (17:23)
[2025-05-01] MEDS ORDERED: FAMOTIDINE 20 MG/50 ML IVPB 20 MG/50 ML MG IVPB ONE (17:23)
[2025-05-01] MEDS: FAMOTIDINE 20 MG/50 ML IVPB 20 MG/50 ML MG IVPB ONE (17:28)
[2025-05-01] MEDS: MAG HYDROX/AL HYDROX/SIMETH 30 ML UNIT-DOSE CUP PO ONE (17:28)
[2025-05-01 17:56] LABS: GLUCOSE,RANDOM 102.0 mg/dL (74-106); TOT PROT 6.9 g/dl (6.4-8.2)
[2025-05-01 17:57] LABS: CO2 23.0 mmol/L (21-32)
[2025-05-01 18:01] LABS: SGOT/AST 32.0 U/L (5-34); SGPT/ALT 21.0 U/L (0-55)
[2025-05-01 18:02] LABS: CREATININE 1.21 mg/dL (0.55-1.3)
[2025-05-01 18:23] LABS: HCV DIAGNOSTIC IN-HOUSE W/RFLX NON-REACTIVE (NONREACTIVE); HIV INTERPRETATION NEGATIVE (NEGATIVE)
[2025-05-01] MEDS ORDERED: FAMOTIDINE 20 MG TABLET PO ONE (18:34)
[2025-05-01 19:00] LABS: ALK PHOS 86.0 U/L (40-150)
[2025-05-01] MEDS ORDERED: FAMOTIDINE 20 MG TABLET ONE (19:03)
== END 2025-05-01 18:42 | disposition home or self-care (01) ==
LOC: JER 16:42
PROC: 3E033GC Introduction of Other Therapeutic Substance into Peripheral Vein, Percutaneous Approach (ICD-10-PCS; principal; 2025-05-01)
DX: R10.13 Epigastric pain (principal)
CPT/HCPCS: 36415; 71045-TC-FY; 80053; 83605; 83690; 84484; 85025; 86803; 87389; 93005; 93010; 96365; 99285-25